=== PATIENT | male | born 1955 | race Caucasian/White ===

== ENCOUNTER 2021-08-04 00:39 | Day surgery (SDC) | payer MEDICARE, SELFPAY ==
[2021-07-11 13:41] VITALS: BMI 27.9
[2021-08-04 11:55] VITALS: BP 148/92; PULSE 66; RESP 20; TEMP 37; O2SAT 97; BMI 27.6
[2021-08-04] MEDS: LACTATED RINGERS 1,000 ML 150 ML IV CONT (11:58)
--- NOTE | 2021-08-04 12:26 | PM.HPGS ---
History of Present Illness History of Present Illness Consent: Risks, benefits, and alternatives have been discussed and questions answered. Patient agrees to proceed with procedure. Chief complaint: hx of colon polyps Narrative: Jim Vivas is a 66 year old male Referred for colon cancer screening. He has a history of having adenomatous polyps. His last colonoscopy was 5 years ago. Review of Systems Review of Systems: All systems reviewed & are unremarkable except as noted in HPI and below PMFSH Past Medical History Medical History BMI 28.0-28.9,adult BPH associated with nocturia Elevated blood pressure reading Erectile dysfunction due to arterial insufficiency Essential (primary) hypertension Hyperplastic colonic polyp Mixed hyperlipidemia PSA elevation Rash of face Screen for colon cancer Social History Social History Smoking status: Never smoker Alcohol intake: current Substance use: never Substance use type: does not use Living arrangements: with family Spiritual care concerns: No Meds Home Medications and Allergies Home Medications Medication Instructions Recorded Confirmed Type sildenafil (pulm.hypertension) 20 See Rx Instructions PO DAILY PRN 10/31/20 08/04/21 Rx mg tablet #30 tablet benazepril 10 mg tablet 10 mg PO DAILY #90 tablet 06/15/21 08/04/21 Rx metronidazole 0.75 % topical cream 1 applic TOPICAL QHS #45 g 06/15/21 08/04/21 Rx ascorbic acid (vitamin C) 1 g PO DAILY 07/11/21 08/04/21 History cholecalciferol (vitamin D3) 25 mcg PO DAILY 07/11/21 08/04/21 History [Vitamin D3] diphenhydramine-acetaminophen 0.5 tablet PO HS 07/11/21 08/04/21 History [Tylenol PM Extra Strength] meloxicam 7.5 mg PO DAILY 07/11/21 08/04/21 History tamsulosin 0.4 mg PO DAILY 07/11/21 08/04/21 History Allergies Allergy/AdvReac Type Severity Reaction Status Date / Time No Known Allergies Allergy Verified 08/04/21 11:53 Vital Signs Vital Signs - 24 hr 08/04/21 11:55 Temperature 37.0 C Pulse Rate 66 Respiratory Rate 20 Blood Pressure 148/92 H Pulse Oximetry 97 Exam Resp: Auscultation: clear to auscultation bilaterally Cardio: Rate: regular rate Rhythm: regular rhythm GI: GI Palp: Yes Soft to palpation and No Tenderness to palpation present (GI) Assessment and Plan Assessment and plan (1) Screen for colon cancer: Code(s): Z12.11 - Encounter for screening for malignant neoplasm of colon Status: Acute Assessment and Plan: Colonoscopy with possible biopsy or polypectomy or cautery or injection of substances.
--- NOTE | 2021-08-04 12:45 | WPDANESEPPF ---
Anes - Initial Pre Proc Eval Procedure: Operation Date: 08/04/21 13:15 Proposed Procedures p Screening Colonoscopy - Vance Pena MD Date/Time: 08/04/21 12:45 Surgeon: Vance Pena MD Pre Op Diagnosis: hx of colon polyps Patient Data Age: 66 Gender: M Height: 1.85 m Weight: 95.2 kg Last Vital Signs Temp 98.6 F 08/04/21 11:55 Pulse 66 08/04/21 11:55 Resp 20 08/04/21 11:55 BP 148/92 H 08/04/21 11:55 Pulse Ox 97 08/04/21 11:55 Allergies Allergy/AdvReac Type Severity Reaction Status Date / Time No Known Allergies Allergy Verified 08/04/21 11:53 Home Medications Medication Instructions Recorded Confirmed Type sildenafil (pulm.hypertension) 20 See Rx Instructions PO DAILY PRN 10/31/20 08/04/21 Rx mg tablet #30 tablet benazepril 10 mg tablet 10 mg PO DAILY #90 tablet 06/15/21 08/04/21 Rx metronidazole 0.75 % topical cream 1 applic TOPICAL QHS #45 g 06/15/21 08/04/21 Rx ascorbic acid (vitamin C) 1 g PO DAILY 07/11/21 08/04/21 History cholecalciferol (vitamin D3) 25 mcg PO DAILY 07/11/21 08/04/21 History [Vitamin D3] diphenhydramine-acetaminophen 0.5 tablet PO HS 07/11/21 08/04/21 History [Tylenol PM Extra Strength] meloxicam 7.5 mg PO DAILY 07/11/21 08/04/21 History tamsulosin 0.4 mg PO DAILY 07/11/21 08/04/21 History Patient hx anesthesia problems: none Family hx anesthesia problems: none Results Review: All pre-operative results and documents have been reviewed as part of the pre-operative evaluation. [facility] Past Medical History Medical History BMI 28.0-28.9,adult BPH associated with nocturia Elevated blood pressure reading Erectile dysfunction due to arterial insufficiency Essential (primary) hypertension Hyperplastic colonic polyp Mixed hyperlipidemia PSA elevation Rash of face Screen for colon cancer Social History Social History Smoking status: Never smoker Alcohol intake: current Substance use: never Substance use type: does not use Living arrangements: with family Spiritual care concerns: No Anes - Eval Final PreProcedure Day of Procedure 08/04/21 12:45 Patient weight: normal Heart: regular rate and rhythm Lungs: clear to auscultation Airway: Mallampati scale class II Neurological: alert and oriented Last oral intake: >/= 8 hours ASA classification: II Emergent: no Anesthetic plan: proceed Anesthesia type and monitoring: general GIVS and standard monitoring Results Review: All pre-operative results and documents have been reviewed as part of the pre-operative evaluation. Informed Consent: The patient's anesthetic plan and its attendant risks and benefits were discussed with the patient/family/POA. Questions were solicited and answers provided to the satisfaction of the patient/family/POA.
[2021-08-04 13:28] VITALS: BP 135/75; PULSE 64; RESP 19; O2SAT 98
[2021-08-04 13:38] VITALS: BP 132/80; PULSE 64; RESP 18; O2SAT 100
[2021-08-04 13:48] VITALS: BP 130/75; PULSE 65; RESP 17; O2SAT 100
== END 2021-08-04 13:51 | disposition home or self-care (01) ==
PROVIDERS: PCP Family Medicine; Visit Provider Internal Medicine Gastroenterology
PROC: 0DJD8ZZ Inspection of Lower Intestinal Tract, Via Natural or Artificial Opening Endoscopic (ICD-10-PCS; CPT 45378; principal; 2021-08-04 13:15)
DX: Z12.11 Encounter for screening for malignant neoplasm of colon (principal); K57.30 Diverticulosis of large intestine without perforation or abscess without bleeding; Z86.010 Personal history of colon polyps; I10 Essential (primary) hypertension; E78.2 Mixed hyperlipidemia; N40.1 Benign prostatic hyperplasia with lower urinary tract symptoms; R35.1 Nocturia
CPT/HCPCS: G0105; J2704; J7120

== ENCOUNTER 2022-06-19 08:47 | Outpatient (CLI) | payer MEDICARE, SELFPAY ==
[2022-06-19 18:36] LABS: Hematocrit 49.5 % (42.0-52.0); Hemoglobin 15.7 g/dL (14.0-18.0); Mean Corpuscular HGB Conc 31.7 g/dl (32-36); Mean Corpuscular Volume 97.6 fl (80-100); Mean Platelet Volume 9.1 fl (7.4-10.4); Platelet Count Result 207 k/mm3 (150-375); Red Blood Count 5.07 M/mm3 (4.6-6.20); Red Cell Distribution Width 13.2 % (11.5-14.5); White Blood Count 5.7 K/mm3 (4.5-10.0)
[2022-06-19 20:25] LABS: Alanine Aminotransferase 22 U/L (6-50); Albumin Level 4.3 g/dL (3.5-5.1); Alkaline Phosphatase 79 U/L (38-126); Anion Gap 6 mmol/L (8-16); Aspartate Amino Transferase 48 U/L (17-59); Bilirubin,Total 0.7 mg/dL (0.2-1.3); Blood Urea Nitrogen 18 mg/dL (9-20); Calcium 8.7 mg/dL (8.4-10.2); Carbon Dioxide 31 mmol/L (22-30); Chloride 104 mmol/L (98-107); Cholesterol 176 mg/dL (0-200); Estimated Glomerular Filt Rate > 60; Glucose 75 mg/dL (65-110); HDL Direct 42 mg/dL; Potassium 4.7 mmol/L (3.4-5.0); Sodium 141 mmol/L (137-145); Triglycerides 77 mg/dL (<150)
[2022-06-19 20:35] LABS: LDL Cholesterol Direct 110 mg/dL
== END 2022-06-19 08:48 | disposition home or self-care (01) ==
LOC: ANHGOSHLAB 08:48
PROVIDERS: PCP Family Medicine; Visit Provider Family Medicine
DX: E78.2 Mixed hyperlipidemia (principal); I10 Essential (primary) hypertension; N40.1 Benign prostatic hyperplasia with lower urinary tract symptoms; R35.1 Nocturia; Z12.5 Encounter for screening for malignant neoplasm of prostate; Z13.220 Encounter for screening for lipoid disorders
CPT/HCPCS: 36415; 80048; 80061; 80076; 84153; 84443; 85027; G0103

== ENCOUNTER 2022-09-28 08:47 | Outpatient (CLI) | payer MEDICARE, SELFPAY ==
[2022-09-28 16:44] LABS: Cholesterol 160 mg/dL (0-200); HDL Direct 42 mg/dL; Triglycerides 57 mg/dL (<150)
[2022-09-28 16:55] LABS: LDL Cholesterol Direct 100 mg/dL
== END 2022-09-28 08:48 | disposition home or self-care (01) ==
LOC: ANHGOSHLAB 08:48
PROVIDERS: PCP Family Medicine; Visit Provider Nurse Practitioner Family
DX: E78.5 Hyperlipidemia, unspecified (principal)
CPT/HCPCS: 36415; 80061

== ENCOUNTER 2023-06-24 08:53 | Outpatient (CLI) | payer MEDICARE, SELFPAY ==
[2023-06-24 10:40] LABS: Hematocrit 45.6 % (42.0-52.0); Mean Corpuscular HGB Conc 32.9 g/dl (32-36); Mean Corpuscular Hemoglobin 31.3 pg (26-34); Mean Corpuscular Volume 95.2 fl (80-100); Mean Platelet Volume 9.1 fl (7.4-10.4); Platelet Count Result 205 k/mm3 (150-375); Red Blood Count 4.79 M/mm3 (4.6-6.20); Red Cell Distribution Width 13.1 % (11.5-14.5); White Blood Count 5.2 K/mm3 (4.5-10.0)
[2023-06-24 10:52] LABS: Alanine Aminotransferase 20 U/L (6-50); Albumin Level 4.1 g/dL (3.5-5.1); Alkaline Phosphatase 75 U/L (38-126); Anion Gap 3 mmol/L (8-16); Aspartate Amino Transferase 36 U/L (17-59); Bilirubin,Total 0.8 mg/dL (0.2-1.3); Blood Urea Nitrogen 18 mg/dL (9-20); Carbon Dioxide 31 mmol/L (22-30); Chloride 106 mmol/L (98-107); Cholesterol 172 mg/dL (0-200); Estimated Glomerular Filt Rate > 60; Glucose 94 mg/dL (65-110); HDL Direct 44 mg/dL; Potassium 3.8 mmol/L (3.4-5.0); Sodium 140 mmol/L (137-145); Triglycerides 62 mg/dL (<150)
[2023-06-24 11:03] LABS: LDL Cholesterol Direct 110 mg/dL
[2023-06-24 11:21] LABS: Prostate Specific Antigen 4.3 ng/mL (< OR = 4.0)
== END 2023-06-24 08:54 | disposition home or self-care (01) ==
LOC: ANHGOSHLAB 08:55
PROVIDERS: PCP Family Medicine; Visit Provider Family Medicine
DX: I10 Essential (primary) hypertension (principal); Z12.5 Encounter for screening for malignant neoplasm of prostate; R97.20 Elevated prostate specific antigen [PSA]; E78.2 Mixed hyperlipidemia; Z13.220 Encounter for screening for lipoid disorders
CPT/HCPCS: 36415; 80048; 80061; 80076; 84153; 84443; 85027; G0103

== ENCOUNTER 2023-07-04 09:57 | Outpatient (CLI) | payer MEDICARE, SELFPAY | END 2023-07-04 09:58 | disposition home or self-care (01) | LOC: ANHAUDASC 09:58 | PROVIDERS: PCP Family Medicine; Visit Provider Family Medicine | DX: H93.13 Tinnitus, bilateral (principal); H90.3 Sensorineural hearing loss, bilateral | CPT/HCPCS: 92557; 92567 ==

== ENCOUNTER 2023-08-01 11:00 | Outpatient (RCR) | payer MEDICARE, SELFPAY | END 2023-10-14 23:59 | disposition home or self-care (01) | LOC: ANHAUDASC 11:00 | PROVIDERS: PCP Family Medicine; Visit Provider Family Medicine | DX: Z46.1 Encounter for fitting and adjustment of hearing aid (principal) | CPT/HCPCS: 99199; V5261 ==

== ENCOUNTER 2023-10-13 08:05 | Emergency (ER) | payer MEDICARE, SELFPAY ==
[2023-10-13 08:16] VITALS: BP 176/93; PULSE 93; RESP 16; TEMP 36.8; O2SAT 97
--- NOTE | 2023-10-13 08:28 | ED.MALEGU ---
HPI - Male Genitourinary General Chief complaint: Abdominal Pain Stated complaint: ABD PAIN Time Seen by Provider: 10/13/23 08:17 Source: patient, family (), RN notes reviewed and old records reviewed Mode of arrival: ambulatory Limitations: no limitations History of Present Illness HPI Narrative: Patient presents today complaining of severe suprapubic pain and pressure, urinary retention, fever. Patient went to see his PCP 2 days ago for urinary symptoms and was started on Macrobid. Subsequent culture shows E coli, but sensitivity is still pending. Patient states last night he started running a fever up to 102 for which he took ibuprofen around 8:00 p.m.. Around 2:00 a.m. he had some dribbling urine in very small amount, but has not urinated since that time as he is unable. He is having some severe suprapubic pain and pressure that he rates a 10/10. Related Data Home Medications Medication Instructions Recorded Confirmed ascorbic acid (vitamin C) 1,000 mg 1 g PO DAILY 07/11/21 10/13/23 tablet cholecalciferol (vitamin D3) 25 25 mcg PO DAILY 07/11/21 10/13/23 mcg (1,000 unit) tablet (Vitamin D3) solifenacin 5 mg tablet (Vesicare) 5 mg PO DAILY 05/22/22 10/13/23 Allergies Allergy/AdvReac Type Severity Reaction Status Date / Time No Known Allergies Allergy Verified 10/13/23 08:12 Review of Systems Review of Systems: CONSTITUTIONAL: Denies body aches, chills, or sweats.+ fever EYES: Denies visual changes, redness, or discharge. ENT: Denies rhinorrhea, congestion, sore throat, or otalgia. CARDIOVASCULAR: Denies chest pain, palpitations, or edema. RESPIRATORY: Denies cough or dyspnea. GASTROINTESTINAL: Denies nausea, vomiting, or diarrhea.+ suprapubic pressure and pain GENITOURINARY: Denies dysuria or hematuria.+ urinary retention SKIN: Denies rash, itching, or wounds. MUSCULOSKELETAL: Denies back pain, joint pain, or myalgia. NEUROLOGIC: Denies headache, numbness, tingling, or weakness. PSYCH: Denies depression or anxiety. 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 Mother No problems noted. Sibling No problems noted. 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 Please see nursing chart for further information. There is no
== END 2023-10-13 08:31 | disposition short-term general hospital (02) ==
PROVIDERS: Emergency Provider Nurse Practitioner; PCP Family Medicine
DX: R33.9 Retention of urine, unspecified (principal); N39.0 Urinary tract infection, site not specified; Z87.891 Personal history of nicotine dependence; N40.0 Benign prostatic hyperplasia without lower urinary tract symptoms; I10 Essential (primary) hypertension; E78.2 Mixed hyperlipidemia; Z85.820 Personal history of malignant melanoma of skin; Z85.72 Personal history of non-Hodgkin lymphomas
CPT/HCPCS: 99212; G0463

== ENCOUNTER 2023-10-13 08:43 | Emergency (ER) | payer MEDICARE, SELFPAY ==
[2023-10-13 08:48] VITALS: BP 193/93; PULSE 96; RESP 20; TEMP 37; O2SAT 98
[2023-10-13 09:04] LABS: Basophils Absolute Auto 0.1 K/mm3 (0.0-0.1); Basophils Percent Auto 0.4 % (0.2-1.2); Eosinophils Percent Auto 0.1 % (0-4.4); Hemoglobin 14.3 g/dL (14.0-18.0); Immature Granulocyte Absolute 0.05 K/mm3 (0.00-0.031); Immature Granulocyte Percent A 0.4 % (0-0.5); Lymphocytes Absolute Auto 0.69 K/mm3 (0.9-3.2); Lymphocytes Percent Auto 5.8 % (18.3-44.2); Mean Corpuscular Hemoglobin 31.6 pg (26-34); Mean Corpuscular Volume 92.9 fl (80-100); Mean Platelet Volume 8.9 fl (7.4-10.4); Neutrophils Absolute Auto 10.1 K/mm3 (1.3-6.7); Neutrophils Percent Auto 85.3 % (45.5-73.1); Platelet Count Result 179 k/mm3 (150-375); Red Blood Count 4.52 M/mm3 (4.6-6.20); Red Cell Distribution Width 12.4 % (11.5-14.5); White Blood Count 11.8 K/mm3 (4.5-10.0)
--- NOTE | 2023-10-13 09:11 | ED.GENADULT ---
HPI - General Adult General Chief complaint: Urogenital-Male Stated complaint: UTI (sent from Urgent Care) Time Seen by Provider: 10/13/23 08:44 History of Present Illness HPI narrative: 68-year-old male presenting emergency department for evaluation for urinary tension with the current urinary tract infection. Patient was having symptoms a few days ago did have follow-up with primary care physician was started on Macrobid and Pyridium. Patient reports last night he had onset of fever up to 102. Patient has not taken Tylenol ibuprofen today and patient is afebrile. Patient initially presented to the urgent care for evaluation but was referred to the emergency department due to suspected urinary retention. Patient states he does follow-up with Urology for issues with urinary retention and does take tamsulosin. Patient has never required a Evans catheter. Related Data Home Medications Medication Instructions Recorded Confirmed ascorbic acid (vitamin C) 1,000 mg 1 g PO DAILY 07/11/21 10/13/23 tablet cholecalciferol (vitamin D3) 25 25 mcg PO DAILY 07/11/21 10/13/23 mcg (1,000 unit) tablet (Vitamin D3) solifenacin 5 mg tablet (Vesicare) 5 mg PO DAILY 05/22/22 10/13/23 Allergies Allergy/AdvReac Type Severity Reaction Status Date / Time No Known Allergies Allergy Verified 10/13/23 08:12 Review of Systems Review of Systems: All systems reviewed & are unremarkable except as noted in HPI and below PMFSH Past Medical History Medical History Bilateral tinnitus BMI 28.0-28.9,adult BMI 29.0-29.9,adult BPH associated with nocturia Changing skin lesion Diverticulosis Elevated blood pressure reading Erectile dysfunction due to arterial insufficiency Essential (primary) hypertension Hearing loss Hyperplastic colonic polyp 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 Mother No problems noted. Sibling No problems noted. 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 HEAD: normocephalic, atraumatic. EYES: PERRLA/EOMI, conjunctivae clear. NOSE: Normal no drainage EARS:TMS clear with good light reflex. THROAT: Pharynx clear, no exudate. NECK: Supple. No adenopathy, no masses. RESPIRATORY: Airway patent, respirations nonlabored. Clear to auscultation bilaterally, no rales, rhonchi, wheezing. CARDIOVASCULAR: Regular rate and rhythm without murmurs rubs or gallops. ABDOMINAL: Suprapubic tenderness to palpation, resolved after placement of Evans catheter MUSCULOSKELETAL: Moves all extremities. Strength/ROM intact, No edema, No calf tenderness. NEURO: Alert. Cranial nerves II through XII intact. Grossly intact SKIN: Warm, dry. Normal
[2023-10-13 09:16] LABS: Alanine Aminotransferase 29 U/L (6-50); Albumin Level 4.7 g/dL (3.5-5.1); Alkaline Phosphatase 98 U/L (38-126); Anion Gap 11 mmol/L (4-12); Aspartate Amino Transferase 33 U/L (17-59); Bilirubin,Total 1.4 mg/dL (0.2-1.3); Blood Urea Nitrogen 17 mg/dL (9-20); Calcium 9.1 mg/dL (8.4-10.2); Carbon Dioxide 23 mmol/L (22-30); Chloride 103 mmol/L (98-107); Estimated CRCL calculation 52 ml/min; Estimated Glomerular Filt Rate 55; Glucose 151 mg/dL (65-110); Potassium 3.9 mmol/L (3.4-5.0); Sodium 137 mmol/L (137-145)
[2023-10-13 09:41] LABS: Bacteria Urine None Seen /hpf; Need Manual Microscopic Reviewed; Non Pathogenic Casts 0-2; Squamous Epithelial Cell Urine None Seen /hpf (Few); WBC Urine 0-5 /hpf (0-3)
[2023-10-13 09:42] LABS: Appearance Urine Clear (Clear); Color Urine Orange (Yellow); Specific Grav Ur 1.013 (1.001-1.035)
[2023-10-13 09:47] LABS: Add Urine Microscopic? YES
[2023-10-13 09:56] VITALS: BP 147/90; PULSE 75; RESP 19; O2SAT 97
[2023-10-13 10:26] VITALS: BP 151/84; PULSE 73; RESP 17; O2SAT 96
== END 2023-10-13 10:28 | disposition home or self-care (01) ==
PROVIDERS: Emergency Provider Emergency Medicine; PCP Family Medicine
DX: N40.1 Benign prostatic hyperplasia with lower urinary tract symptoms (principal); R33.8 Other retention of urine; N39.0 Urinary tract infection, site not specified; R35.1 Nocturia; I10 Essential (primary) hypertension; E78.2 Mixed hyperlipidemia; N52.01 Erectile dysfunction due to arterial insufficiency; Z85.820 Personal history of malignant melanoma of skin; Z86.010 Personal history of colon polyps; Z87.891 Personal history of nicotine dependence
CPT/HCPCS: 36415; 51702; 80053; 81001; 85025; 96365; 99284; J0696

== ENCOUNTER 2023-10-23 09:55 | Outpatient (CLI) | payer MEDICARE, SELFPAY ==
--- NOTE | 2023-10-23 10:04 | ECG_ITS ---
Test Date: 2023-10-23 10:16:00 Measurements Intervals [place] Rate: 72 P: 15 HI: 165 QRS: 3 QRSD: 97 T: 19 QT: 375 QTc: 413 Interpretive Statements SINUS RHYTHM DELAYED PRECORDIAL R/S TRANSITION MINIMAL Q WAVES- HIGH LATERAL LEADS BASELINE ARTIFACT- I, II, III, AVR, AVL, AVF BORDERLINE ECG No previous ECG available for comparison Electronically Signed On 10-23-2023 10:23:32 CDT by Dileep Harvey D.O.
[2023-10-23 10:38] LABS: Prothrombin Time 13.9 Seconds (11.1-14.7)
[2023-10-23 10:39] LABS: Partial Thromboplastin Time 30.9 Seconds (22.3-36.8)
== END 2023-10-23 09:56 | disposition home or self-care (01) ==
LOC: ANHSURGERY 09:58
PROVIDERS: PCP Family Medicine; Visit Provider Urology
DX: N40.0 Benign prostatic hyperplasia without lower urinary tract symptoms (principal); I10 Essential (primary) hypertension; Z01.818 Encounter for other preprocedural examination
CPT/HCPCS: 36415; 85610; 85730; 87086; 93005

== ENCOUNTER 2023-10-29 02:34 | Day surgery (SDC) | payer MEDICARE, SELFPAY ==
[2023-10-22 15:31] VITALS: BMI 26.9
--- NOTE | 2023-10-22 15:52 | PC.NURSE ---
Report to the Outpatient Waiting Room, entrance under the green pavilion located off [facility], at time ___6:00AM____ on date ___10/29/23____. Planned Procedure Time: __7:30AM . Time changes happen often and if your time is changed the preop area will call you the afternoon before. - You and your visitor will be asked to self-screen and do not enter if you have any COVID symptoms. - A mask is optional within the hospital at this time. Patients may have clear liquids (water, carbonated beverages, clear teas, apple juice) until 3 hours prior to surgery with a maximum of 20 ounces. - No food from midnight until time of surgery. Take the following medications with a SIP of water the morning of surgery: NONE DO NOT STOP ANY OF YOUR OTHER PRESCRIPTION MEDICATIONS PRIOR TO SURGERY ?EXCEPT THE FOLLOWING Medications to discontinue per physician __HOLD ALL VITAMINS/SUPPLEMENTS AND DICLOFENAC 7 DAYS PRE-OP PER DR MCHUGH Date to take last dose____10/21/23 Please no make-up, nail serbian, hairspray, perfume, deodorant, or body powder the day of surgery. No jewelry (including any body piercings) or valuables the day of surgery, leave them at home. Please take a shower or bath the night before, or the morning of, surgery with an antibacterial soap. Wear comfortable, loose fitting clothing. - Jewelry must be removed prior to entering the operating room. Rings and piercings that are not removed may be cut off. - The hospital will not accept responsibility for valuables. - Please leave all valuables, including medications, at home the day of surgery. If you are going home after surgery, a licensed driver salesman must drive you home. - NO public transportation without another adult if you receive anesthesia. - We recommend that an adult stay with you for 24 hours following discharge. - We also recommend that you do not drive, make important decision, drink alcoholic beverages, or take any drugs that were not prescribed by your health care provider for at least 24 hours after your discharge time. Follow any additional instructions given to you from your surgeon. If you or anyone in your household have experienced Covid symptoms in the past week, please notify your surgeon or the nurse liaison at the phone number below for possible testing. Telephone instructions given to ____PATIENT & , HECTOR, and asked if any additional questions and then verbalized understanding. Patient advised to call surgeon office or pre surgery nurse liaison [phone] if any additional questions.
[2023-10-29] VITALS (12 sets, daily range): BP systolic 115–164; BP diastolic 69–92; PULSE 60–79; RESP 11–20; TEMP 35.7–36.7; O2SAT 97–100
--- NOTE | 2023-10-29 06:41 | WPDANESEPPF ---
Anes - Initial Pre Proc Eval Procedure: Operation Date: 10/29/23 07:30 Proposed Procedures p Trans Urethral Resection Prostate - Duncan Bryant MD Date/Time: 10/29/23 06:41 Surgeon: Duncan Bryant MD Pre Op Diagnosis: BPH Patient Data Age: 68 Gender: M Height: 1.83 m Weight: 90 kg Allergies Allergy/AdvReac Type Severity Reaction Status Date / Time No Known Allergies Allergy Verified 10/22/23 15:27 Home Medications Medication Instructions Recorded Confirmed Type cholecalciferol (vitamin D3) 25 25 mcg PO DAILY 07/11/21 10/22/23 History mcg (1,000 unit) tablet (Vitamin D3) diclofenac sodium 50 mg 50 mg PO TID PRN pain #90 tabs 06/04/23 10/22/23 Rx tablet,delayed release sildenafil 100 mg tablet 100 mg PO DAILY PRN sexual 06/13/23 10/22/23 Rx activity #30 tabs tamsulosin 0.4 mg capsule 0.4 mg PO DAILY #90 caps 06/13/23 10/22/23 Rx benazepril 10 mg tablet 10 mg PO DAILY #90 tabs 08/25/23 10/22/23 Rx multivitamin 1 tablet PO DAILY 10/22/23 10/22/23 History Patient hx anesthesia problems: none Family hx anesthesia problems: none Results Review: All pre-operative results and documents have been reviewed as part of the pre-operative evaluation. 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 Mother No problems noted. Sibling No problems noted. Social History Social History Smoking packs per day: 1 Smoking cigarettes per day: 20.0 Years smoked: 12 Smoking pack-years: 12.00 Smoking status: Former smoker Tobacco type: cigarettes Second hand tobacco smoke exposure: Yes Smoking end date: 10/13/77 Alcohol intake: current Substance use: never Substance use type: does not use Do You Feel Safe in your Home?: Yes Lack of Transportation: No Lack of Food: Never True Current Housing: I Have Housing Concerned About Future Housing: No Difficulty Paying Gas/Electric Bills: No Difficulty Paying for Meds: No Currently Unemployed: No Education: Trade/Vocational Certificate Difficulty w/ Childcare or Family Care: No Living arrangements: with family Additional living arrangements comments: 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 Informed Consent: The patient's anesthetic plan and its attendant risks and benefits were discussed with the patient/family/POA. Questions were solicited and answers provided to the satisfaction of the patient/family/POA.
[2023-10-29] MEDS: LACTATED RINGERS 1,000 ML 30 ML IV CONT (07:00)
--- NOTE | 2023-10-29 07:34 | WPDHPUPDATE1 ---
History and Physical Update Update Date/Time: 10/29/23 07:34 History and Physical has been reviewed, including an updated exam of the patient. There are NO changes in the patient's condition. Risks, benefits, and alternatives have been discussed and questions answered. Patient agrees to proceed with procedure. Proceed with turp
[2023-10-29] MEDS: ceFAZolin 2 GM/D5W 50 ML 2 GM/50 ML BAG IVPB (07:44)
[2023-10-29] MEDS: LIDOCAINE HCL 2% GEL UROJET 10 ML PKG MUCOUS MEM (08:35)
--- NOTE | 2023-10-29 08:42 | W.PM.PROC2 ---
Procedure Note - Detailed Date of Procedure 10/29/23 Pre-op Diagnosis BPH Urinary retention Post-op Diagnosis Same Procedure Performed Transurethral resection of prostate with Evans placement Surgeon Duncan Bryant MD Anesthesia General Description of Procedure Patient was taken to the operative suite correctly identified. Once anesthesia was obtained he was placed in dorsal lithotomy position and prepped and draped usual sterile fashion. Urethra meatus was dilated to 24 [place]. Twenty-four [place] resectoscope sheath was inserted the bladder. There is no tumors noted. He does have a large median lobe. The lateral lobes were moderate in size. I went ahead and started by resecting from the bladder neck at the 5 and 7 o'clock position down to the vera. The lateral lobes were then taken down. Median lobe was taken down last. The ureteral orifice ease and the sphincter was spared. Hemostasis was achieved using electrocautery. Specimen was sent for pathologic review. 2% viscous lidocaine was inserted into the urethra. Twenty-four [place] Evans was placed with 20 cc in the balloon. This was connected to continuous bladder irrigation with saline. Patient is taken recovery stable condition. This completes dictation. Please send a copy of op note to my office. Estimated Blood Loss 25 Drains Yes Packing No Pathology Yes Complications No immediate complications Condition Stable Disposition PACU
[2023-10-29] MEDS: HYOSCYAMINE SULFATE 0.125 MG TABLET PO (09:14)
--- NOTE | 2023-10-29 09:14 | SUR.PHASEI ---
Simple mask removed at 0910.
[2023-10-29] MEDS: DOCUSATE SODIUM 100 MG CAPSULE PO ×2 (10:44→16:28)
[2023-10-29] MEDS: HYDROcodone/acetaminophen (*CRX) 5-325 MG TABLET 1 TAB PO (10:44)
[2023-10-29] MEDS: lisinopriL 10 MG TABLET PO (10:46)
--- NOTE | 2023-10-29 11:07 | ADMGEN ---
This patient, Jim Vivas, was admitted to [facility] Surg Room 314-02. Patient/family oriented to hospital policies and general routines including ID bracelet, bed and alarms, visiting hours, pain management, procedures, bathroom and other care routines, personal items, smoking policy, room service/diet, and visiting hours. Information on how to activate the Rapid Response Team has been discussed. Patient/Family are encouraged to report perceived risks to care and to ask questions if they do not understand what they are told or what they should do.
[2023-10-29] MEDS: ceFAZolin 1 GM/NS 50 ML 1 GM/50 ML BAG IVPB ×2 (16:28→22:56)
[2023-10-30 03:50] VITALS: BP 127/69; PULSE 66; RESP 20; TEMP 35.3; O2SAT 100
[2023-10-30 06:28] LABS: Hematocrit 41.3 % (42.0-52.0); Hemoglobin 13.6 g/dL (14.0-18.0)
[2023-10-30 06:40] LABS: Anion Gap 7 mmol/L (4-12); Blood Urea Nitrogen 13 mg/dL (9-20); Calcium 8.7 mg/dL (8.4-10.2); Carbon Dioxide 28 mmol/L (22-30); Chloride 102 mmol/L (98-107); Estimated CRCL calculation 82 ml/min; Estimated Glomerular Filt Rate > 60; Glucose 105 mg/dL (65-110); Sodium 137 mmol/L (137-145)
[2023-10-30 07:37] VITALS: BP 146/81; PULSE 72; RESP 20; TEMP 36.1; O2SAT 100
[2023-10-30] MEDS: CEPHALEXIN 500 MG CAPSULE PO ×2 (08:47→12:12)
[2023-10-30] MEDS: DOCUSATE SODIUM 100 MG CAPSULE PO (08:47)
[2023-10-30] MEDS: lisinopriL 10 MG TABLET PO (08:47)
[2023-10-30 11:38] VITALS: BP 129/74; PULSE 66; RESP 18; TEMP 36.3; O2SAT 95
--- NOTE | 2023-10-30 13:49 | PM.DS ---
DS: Admitting Diagnosis Discharge Date 10/30/2023 Admitting Diagnosis BPH DS: Discharge Diagnosis Discharge Diagnosis (1) BPH associated with nocturia: Code(s): N40.1 - Benign prostatic hyperplasia with lower urinary tract symptoms; R35.1 - Nocturia Status: Acute DS: Summary Hospital Course Hospital Course: Jim Vivas presented to [facility] in 10/29/2023 to undergo scheduled transurethral resection of prostate with Evans placement by Dr. Bryant. Procedure GERD and eventfully and patient tolerated very well. He was started on continuous bladder irrigation postoperatively. CBI was discontinued on postoperative day 1. Urine remained clear. He was ambulating without difficulty and tolerating his diet. His pain was very well controlled. He was eager for discharge home. Discussed discharge plans with patient and his at length. He will discharge with Evans catheter in place and will follow-up on 11/04/2023 for Evans catheter removal. Will continue a course of Keflex and was given a short course of analgesics and antispasmodics. Discussed worrisome signs and symptoms for which to seek care or call the office and all questions were answered. The patient has been discharged in hemodynamically stable condition and is comfortable with plans for return home. Status at Discharge Functional status at discharge: independent ambulation Overall status at discharge: patient is progressing back to baseline Time Spent with Patient Time attestation: Total time spent providing and/or coordinating discharge services: 35 minutes Time spent: Greater than 30 minutes Exam Narrative: General: Awake, alert, comfortable, no acute distress HEENT: Normocephalic, atraumatic, sclerae anicteric Respiratory: Normal respiratory effort, no accessory muscle use Abdomen: Nondistended, soft, nontender : Evans catheter draining clear jai urine with CBI off Skin: Normal coloration, warm and dry Neurologic: No focal neuro deficits noted Psychiatric: Appropriate mood and affect, judgment and insight intact DS: Data Data Completed and Pending Completed studies during hospitalization: Pending at discharge 10/29/23 08:23 Surgical [PTH] Routine Labs on day of discharge: Labs from last 24 hours 10/30/23 05:46 Hgb 13.6 L Hct 41.3 L Sodium 137 Potassium 4.0 Chloride 102 Carbon Dioxide 28 Anion Gap 7 BUN 13 Creatinine 0.80 Estim Creat Clear Calc 82 Estimated GFR > 60 Glucose 105 Calcium 8.7 Discharge Plan Discharge Attending physician on discharge: Duncan Bryant Discharging Clinician: Charity Robert Patient Disposition: Home, Self-Care Discharge Instructions: Continue to use the Evans catheter. Call the office or go to the ER if you have any troubles with a catheter or if it stops draining Stand Alone Forms: General Discharge Instructions Follow-up/Referrals: Charity Robert PA-C [Physician Shot Bagger] - 11/04/23 Discharge Medications: New cephalexin 500 mg Capsule 500 mg PO QID 5 Days Qty: 20 0RF docusate sodium 100 mg Capsule 100 mg PO BID 10 Days Qty: 20 0RF hydrocodone-acetaminophen 5-325 mg Tablet 1 tablet PO Q4H PRN (Reason: Pain Rated 1-6) Qty: 20 0RF hyoscyamine sulfate [Anaspaz] 0.125 mg Tablet,Disintegrating 0.125 mg sublingual Q6H PRN (Reason: Bladder Spasm) Qty: 20 0RF Continued sildenafil 100 mg tablet 100 mg PO DAILY PRN (Reason: sexual activity) Qty: 30 0RF Rx Instructions: administer 30 minutes to 4 hours before activity tamsulosin 0.4 mg capsule 0.4 mg PO DAILY Qty: 90 3RF Rx Instructions: TAKE 1 CAPSULE BY MOUTH DAILY cholecalciferol (vitamin D3) [Vitamin D3] 25 mcg (1,000 unit) Tablet 25 mcg PO DAILY multivitamin Tablet 1 tablet PO DAILY benazepril 10 mg tablet 10 mg PO DAILY Qty: 90 1RF Rx Instructions: in am Held diclofenac sodium 50 mg
== END 2023-10-30 14:50 | disposition home or self-care (01) ==
LOC: ANHSURGERY 05:54 → ANH3MEDSUR 10:07
PROVIDERS: PCP Family Medicine; Visit Provider Urology
PROC: 0VT08ZZ Resection of Prostate, Via Natural or Artificial Opening Endoscopic (ICD-10-PCS; CPT 52601; principal; 2023-10-29 07:30)
DX: N40.1 Benign prostatic hyperplasia with lower urinary tract symptoms (principal); N41.1 Chronic prostatitis; R33.8 Other retention of urine; N32.81 Overactive bladder; I10 Essential (primary) hypertension; E78.2 Mixed hyperlipidemia; N52.9 Male erectile dysfunction, unspecified; Z87.891 Personal history of nicotine dependence; Z86.010 Personal history of colon polyps; Z85.820 Personal history of malignant melanoma of skin
CPT/HCPCS: 52601; 36415; 80048; 85014; 85018; 85610; 85730; 87086; 88305; 93005; A9270; J0690; J1100; J2405; J2704; J3010; J7120

== ENCOUNTER 2023-12-23 16:16 | Outpatient (CLI) | payer MEDICARE, SELFPAY ==
[2023-12-23 18:52] LABS: Basophils Absolute Auto 0.1 K/mm3 (0.0-0.1); Basophils Percent Auto 0.9 % (0.2-1.2); Eosinophils Absolute Auto 0.2 K/mm3 (0-0.3); Eosinophils Percent Auto 2.2 % (0-4.4); Hematocrit 43.9 % (42.0-52.0); Hemoglobin 14.5 g/dL (14.0-18.0); Immature Granulocyte Absolute 0.01 K/mm3 (0.00-0.031); Immature Granulocyte Percent A 0.1 % (0-0.5); Lymphocytes Absolute Auto 1.96 K/mm3 (0.9-3.2); Lymphocytes Percent Auto 28.2 % (18.3-44.2); Mean Corpuscular Hemoglobin 31.2 pg (26-34); Mean Corpuscular Volume 94.4 fl (80-100); Mean Platelet Volume 9.2 fl (7.4-10.4); Monocytes Absolute Auto 0.5 K/mm3 (0.1-0.6); Monocytes Percent Auto 6.9 % (2.6-8.5); Neutrophils Absolute Auto 4.3 K/mm3 (1.3-6.7); Neutrophils Percent Auto 61.7 % (45.5-73.1); Platelet Count Result 220 k/mm3 (150-375); Red Blood Count 4.65 M/mm3 (4.6-6.20); Red Cell Distribution Width 12.7 % (11.5-14.5); White Blood Count 6.9 K/mm3 (4.5-10.0)
[2023-12-23 19:11] LABS: Anion Gap 6 mmol/L (4-12); Blood Urea Nitrogen 16 mg/dL (9-20); Calcium 9.2 mg/dL (8.4-10.2); Carbon Dioxide 32 mmol/L (22-30); Chloride 100 mmol/L (98-107); Estimated Glomerular Filt Rate > 60; Glucose 86 mg/dL (65-110); Potassium 4.2 mmol/L (3.4-5.0); Sodium 138 mmol/L (137-145)
[2023-12-24 00:38] LABS: Iron 122 ug/dL (49-181)
[2023-12-24 00:46] LABS: Percent Iron Saturation 36 % (20-50)
== END 2023-12-23 16:17 | disposition home or self-care (01) ==
PROVIDERS: PCP Family Medicine; Visit Provider Family Medicine
DX: D64.9 Anemia, unspecified (principal); I10 Essential (primary) hypertension; M54.9 Dorsalgia, unspecified
CPT/HCPCS: 36415; 80048; 82728; 83540; 83550; 84443; 85025; 87086

== ENCOUNTER 2024-03-10 12:57 | Outpatient (CLI) | payer MEDICARE, SELFPAY ==
--- NOTE | ~2024-03-10 | XR_ITS ---
EXAM: XR lumbar spine 2-3V DATE: 03/10/2024 13:14 HISTORY: M54.31 - Sciatica, right side . COMPARISON: None available. FINDINGS: Moderate scoliosis. 5 nonrib-bearing lumbar-type vertebral bodies. Pedicles intact. 3 mm re trolisthesis at L1-2. 3 mm anterolisthesis at L4-5. Mild anterior wedge deformity at L1. Multilevel m oderate disc space narrowing and marginal osteophytosis. Vacuum phenomenon at L4-5. Moderate facet hy pertrophy and sclerosis in the mid and lower lumbar spine, with interspinous narrowing. No fracture o r dislocation. IMPRESSION: Acute versus chronic mild compression deformity at L1, correlate for acute pain/tenderness or history of prior trauma. Comparison to outside studies would be helpful if available. Grade 1 listheses at L1-2 and L4-5. Multilevel lumbar degenerative disc disease, moderate-severe at L 4-5. Moderate mid and lower lumbar facet arthropathy. Reviewed, dictated and finalized at location [facility] IMPRESSION: Acute versus chronic mild compression deformity at L1, correlate for acute pain /tenderness or history of prior trauma. Comparison to outside studies would be helpful if available. Grade 1 listheses at L1-2 and L4-5. Multilevel lumbar degenerative disc disease , moderate-severe at L4-5. Moderate mid and lower lumbar facet arthropathy.
== END 2024-03-10 12:58 | disposition home or self-care (01) ==
LOC: GOSHIMG 12:57
PROVIDERS: PCP Family Medicine
DX: M54.31 Sciatica, right side (principal); M51.369 Other intervertebral disc degeneration, lumbar region without mention of lumbar back pain or lower extremity pain
CPT/HCPCS: 72100

== ENCOUNTER 2024-04-27 08:46 | Outpatient (CLI) | payer MEDICARE, SELFPAY ==
--- NOTE | ~2024-04-27 | MR_ITS ---
EXAMINATION: MR lumbar spine wo con DATE: 04/27/2024 09:15 INDICATION: Low back pain, unspecified. TECHNIQUE: Magnetic resonance imaging (MRI) of the lumbar spine was performed without intravenous con trast. Sequences included sagittal T2-weighted FSE, sagittal T2-weighted FS FSE, sagittal T1-weighted FSE, and axial T2-weighted FSE. COMPARISON: Lumbar spine radiograph 03/10/2024 FINDINGS: There is 8 degrees levocurvature of lumbar spine. There is 3 mm anterolisthesis of T12 on L 1, 5 mm retrolisthesis of L1 on L2, 6 mm anterolisthesis of L4 and L5, and 3 mm retrolisthesis of L5 on S1. There is mild chronic anterior wedging of T11-L1 vertebral bodies. There is mildly decreased d isc height at T12-L1 and L1-L2 and moderately decreased disc height from L2-L3 through L5-S1. The fol lowing disc levels are specifically discussed: L1-L2: The disc is bulging and has an annular fissure. There is mild right and moderate left facet emelyn int osteoarthritis. There is mild bilateral neural foraminal stenosis. There is mild central canal st enosis. L2-L3: The disc is bulging. There is severe bilateral facet joint osteoarthritis. There is moderate b ilateral neural foraminal stenosis. There is mild central canal stenosis. L3-L4: The disc is bulging and has an annular fissure. There is severe bilateral facet joint osteoart hritis. There is moderate right and mild left neural foraminal stenosis. There is mild central canal stenosis. L4-L5: The disc is bulging and has an annular fissure. There is severe bilateral facet joint osteoart hritis. There is moderate bilateral neural foraminal stenosis. There is moderate central canal stenos is. L5-S1: The disc is bulging and has an annular fissure. There is moderate right and severe left facet joint osteoarthritis. There is mild bilateral neural foraminal stenosis. There is mild central canal stenosis. IMPRESSION: 1. Moderate lumbar spondylosis. Reviewed, dictated and finalized at location [facility]
== END 2024-04-27 08:47 | disposition home or self-care (01) ==
LOC: GOSHIMG 08:47
PROVIDERS: PCP Family Medicine
DX: M54.50 Low back pain, unspecified (principal); M43.16 Spondylolisthesis, lumbar region; M41.9 Scoliosis, unspecified; M47.896 Other spondylosis, lumbar region
CPT/HCPCS: 72148

== ENCOUNTER 2024-06-24 10:16 | Outpatient (CLI) | payer MEDICARE, SELFPAY ==
--- OUTSIDE RECORDS SUMMARY | 2024-06-24 11:33 | XMS_ITS | Patient Health Record ---
Author Organization [facility] gement Address [address] [place] [address] Care Team Providers Care Agricultural Produce Washer Name Role Phone Steven Johnson Unavailable [phone] Burt Ken Unavailable Unavailable Allergies No Known Allergies Reason For Referral Reason Finding of elevated blood pressure Diagnosis 1 Elevated blood-press ure reading, without diagnosis of hypertension (R03.0) [place] [facility]erring Provider First Name Referring Provider Last Name Alex Referring Provider Speciality Pain Medic ine Referred Provider Specialty Internal Med icine Referral Priority Routine Reason (R) L5 and S1 SNRB Diagnosis 1 Radiculopathy, lumba r region (M54.16) [place] [facility] [place] Steven Johnson Referred Address [address],[place], [place],[address] Referred Provider Specialty Pain Medicin e Procedure 1 LUMBAR SNRI (63416) Procedure 2 LUMBAR SNRI (03517) General Notes approved through [facility], scanned in chart, QuinteroAnna ulrich 04/30/2024 12:49:14 PM > Referral Priority Routine Reason eval and treat for l ow back pain Diagnosis 1 Radiculopathy, lumba r region (M54.16) [place] [facility] [place]erring Provider First Name Referring Provider Last Name Alex Referring Provider Speciality Pain Medic ine Referred Provider Specialty Physical The rapist Referral Priority Routine Medications Medication SIG (Take, Route, Fr equency, Duration) Notes Start Date End Date Status Benazepril HCl Activ e Diclofenac Sodium Ac tive Social History Tobacco Use: Social History Observation Description Date Details (start date - stop date) Never Smoker NA - NA Tobacco Use/Smoking Question Answer Notes Are you a nonsmoker Alcohol Screen (Audit-C) Question Answer Notes Did you have a drink contain ing alcohol in the past year? Yes How often did you have a dri nk containing alcohol in the past year? Monthly or less (1 point) Points 1 Interpretation Negative Problems Problem Type SNOMED Code ICD Code Onset Dates Problem Status W/U Status Risk Notes Problem Degeneration of lumbar intervertebral disc (27757449) Other intervertebral disc degeneration, lumbar region (M51.36) Active confirmed Problem Lumbar radiculopathy (696281415) Radiculopathy, lumbar region (M54.16) Active confirmed Vital Signs Heart Rate 72 /min 05/05/2024 Temperature 98.2 degrees Fahrenheit 05/05/2024 Respiratory Rate 20 /min 05/05/2024 Blood pressure diastolic 95 mm Hg 05/05/2024 Height 71 in 05/05/2024 Blood pressure systolic 170 mm Hg 05/05/2024 Weight 204 lbs 05/05/2024 BMI 28.45 kg/m2 05/05/2024 Encounters Encounter Location Date Provider Diagnosis [facility] [address] [place] [phone] 04/29/2024 Steven Johnson Radiculopathy, lumba r region M54.16 and Other intervertebral disc degeneration, lumbar region M51.36 [facility] [address] [place] [phone] 05/05/2024 Steven Johnson Radiculopathy, lumba r region M54.16 and Other intervertebral disc degeneration, lumbar region M51.36 [facility] [address] [place] [phone] 05/12/2024 Steven Johnson [facility] [address] [place] [phone] 04/29/2024 Steven Johnson Assessments Encounter Date Diagnosis (ICD Code) Assessment Notes Treatment Notes Treatment Clinical Notes Section Notes 04/29/2024 Other intervertebral disc degeneration, lumbar region (ICD-10 - M51.36) 04/29/2024 Radiculopathy, lumbar region (ICD-10 - M54.16) 1. Proceed with a right L5 and S1 selective nerve root block. This treatment is for his diagnosis of lumbar radicular pain. Goals to be met are to reduce pain and improve his ability to function with his exercise therapy.2. Return for above procedure after insurance authorization 05/05/2024 Radiculopathy, lumbar region (ICD-10 - M54.16) 1. Proceed with a right L5 and S1 selective nerve root block.2. Return to clinic as necessary. Consider translaminar approach for failure. 05/05/2024 Other intervertebral disc degeneration, lumbar region (ICD-10 - M51.36) Plan Of Treatment Next Appt Details Provider Name:Steven fishman, 06/26/2024 02:45:00 PM, [address] [place] [address], [facility] [address], [place], [address], Insurance Providers Payer Name Payer Address Payer Phone Subscriber Number Group Number Insured Name Patient Relationship to Insured Coverage Start Date Coverage End Date [employer] MED[employer]ARE [address] [place] [address] [id number] Jim Vivas) Self - patient is the insured Medical (General) History Medical History History ICD Code high blood pressure skin cancer prostate problems Surgical History Surgery Date(Month/Year) TURP 10/2023 Mole Lesion- right arm 10/2023 Melanoma 1988
--- OUTSIDE RECORDS SUMMARY | 2024-06-24 11:34 | XMS_ITS | Referral Summary ---
Author Organization [facility] Address [address] [place] [id number] Care Team Providers Care Ux Architect Name Role Phone Burt Ken MD Primary Care Provider [phone] Allergies No known active allergies Medications meloxicam (MOBIC) 15 mg tablet Take 15 mg by mouth daily. Active benazepriL (LOTENSIN) 10 mg tablet Take 10 mg by mouth daily 01/04/2020 Active rosuvastatin (CRESTOR) 20 mg tablet TAKE 1 TABLET (20 MG) BY MOUTH DAILY 02/05/2020 Active tamsulosin (FLOMAX) 0.4 mg extended release capsule Take by mouth daily 02/12/2020 Active dutasteride (AVODART) 0.5 mg capsule 08/28/2021 Active Active Problems Problem Noted Date Diagnosed Date Primary osteoarthritis of left knee 02/24/2020 Basal cell carcinoma (BCC) of nasal tip 02/26/20 18 Basal cell carcinoma (BCC) of left cheek - Left 02/25/2018 Knee pain 03/14/2015 Social History Tobacco Use Types Packs/Day Years Used Date Smoking Tobacco: Former Cigarettes Smokeless Tobacco: Never Alcohol Use Standard Drinks/Week Comments Yes 0 (1 standard drink = 0.6 oz pur e alcohol) Rare Personal Safety Answer Date Recorded Getting School Help Needed Not on file 05/21 Sex and Gender Information Value Date Recorded Sex Assigned at Not on file Legal Sex Male 9:00 PM TIP PUNCHER Gender Identity Not on file Sexual Orientation Not on file Last Filed Vital Signs Vital Sign Reading Time Taken Comments Blood Pressure 146/91 02/25/2018 12:36 PM TIP PUNCHER Pulse 66 02/25/2018 12:36 PM TIP PUNCHER Temperature - - Respiratory Rate - - Oxygen Saturation 98% 02/25/2018 12:36 PM TIP PUNCHER Inhaled Oxygen Concentration - - Weight 95.3 kg (210 lb) 09/27/2021 1:13 PM CDT Height 185.4 cm (6' 1 ) 09/27/2021 1:13 PM CDT Body Mass Index 27.71 09/27/2021 1:13 PM CDT Plan of Treatment Not on file Insurance [facility] MEDICARE [facility] [place] [address] Care Teams Ux Architect Relationship Specialty Start Date End Date Burt Ken MD PCP - General Family Medicine 01/28/18
--- OUTSIDE RECORDS SUMMARY | 2024-06-24 11:34 | XMS_ITS ---
Author Organization [facility] gement Address [address] [place] [address] Care Team Providers Care Organic Chemistry Professor Name Role Phone Steven Johnson Unavailable [phone] Burt Ken Unavailable Unavailable REASON FOR VISIT DSG-[employer] MCR-approved Encounters Encounter Location Date Provider Diagnosis [facility] [address] [place] [address] 04/29/2024 Steven Johnson Plan Of Treatment Next Appt Details Provider Name:Steven Samuel erg, 06/26/2024 02:45:00 PM, [address], [address], [place], [address], Progress Notes * Jim VIVAS): (68 yo F)Acc No.[id number]:04/29/2024 Patient: S Jim WOOD) :1955 A ge:68 Y S ex:Female Address:[place] [address] * true * Date: Generated for Printi ng/Faxing/eTransmitting on: 0 06/24/2024 11:33 AM CDT
--- OUTSIDE RECORDS SUMMARY | 2024-06-24 11:34 | XMS_ITS ---
Author Organization [facility] Address [address] [place] [address] Care Team Providers Care Seat Builder Name Role Phone Steven Johnson Unavailable [phone] Burt Ken Unavailable Unavailable REASON FOR VISIT RT L5 S1 SNRB Medications Medication SIG (Take, Route, Fr equency, Duration) Notes Start Date End Date Status Benazepril HCl Activ e Diclofenac Sodium Ac tive Vital Signs Temperature 98.2 degrees Fahrenheit 05/05/19 25 Blood pressure systolic 170 mm Hg 05/05/19 25 Blood pressure diastolic 95 mm Hg 025 Heart Rate 72 /min 05/05/2024 Respiratory Rate 20 /min 05/05/2024 Height 71 in 05/05/2024 Weight 204 lbs 05/05/2024 BMI 28.45 kg/m2 05/05/2024 Encounters Encounter Location Date Provider Diagnosis [facility] [address] [address] [place] [address] 05/05/2024 Steven Johnson Radiculopathy, lumba r region M54.16 and Other intervertebral disc degeneration, lumbar region M51.36 Assessments Encounter Date Diagnosis (ICD Code) Assessment Notes Treatment Notes Treatment Clinical Notes Section Notes 05/05/2024 Radiculopathy, lumbar region (ICD-10 - M54.16) 1. Proceed with a right L5 and S1 selective nerve root block.2. Return to clinic as necessary. Consider translaminar approach for failure. 05/05/2024 Other intervertebral disc degeneration, lumbar region (ICD-10 - M51.36) Plan Of Treatment Treatment Notes Assessment Notes Radiculopathy, lumbar region 1. Proceed with a right L5 and S1 selective nerve root block.2. Return to clinic as necessary. Consider translaminar approach for failure. Next Appt Details Provider Name:Steven Samuel kye, 06/26/2024 02:45:00 PM, [address] [address], [address], [place], [address], Procedure Notes * Category Sub-Category Detail Notes Lumbar Multilevel Transforaminal Epidural Injection Right L5 and S1 The patient was identified i n the holding area and the operative permit was explained and signed. I have discussed with the patient the risks, benefits, side effects and complications of a fluoroscopically guided multiple level transforaminal lumbar epidural injections. I have answered the patient's questions regarding the procedure and have given the patient the opportunity to refuse the procedure. I also have discussed alternative methods of treatment. The patient stated understanding of the procedure and wished to proceed with a fluoroscopically guided multiple level transforaminal lumbar epidural injections. The patient was taken to the fluoroscopic suite and placed on a C-arm table in the prone position. Noninvasive blood pressure, pulse oximetry, and an EKG tracing were used to monitor the patient continuously throughout the procedure. A nurse was in attendance for the duration of the procedure to carefully monitor the patient. Please refer to the nursing record for vital sign documentation and for any doses of sedatives and medications. I was present and gave the order for any medications given to the patient. The procedure was performed on the right L5 nerve root. A sterile Betadine preparation and then a sterile drape were applied to the lumbosacral region of the back. The fluoroscopic unit was manipulated in a caudad/cephalad position until the disc spaces of the joints were in clear focus. The unit was then positioned in the oblique view until the pedicle and articulating processes were clearly visible. Using fluoroscopic guidance, a 5 inch, 25 gauge Quincke needle was placed on the six o'clock position of the pedicle. The needle was then slowly walked off the lamina into the nerve root foramen. A lateral fluoroscopic projection showed the needle tip entering the superior posterior aspect of the desired intervertebral foramen. Using AP fluoroscopic projection, 1.0 cc of Omnipaque (240 mg/cc) was injected through the needle and a neurogram was produced. There was clear dye spread through each nerve root sheath and into the epidural space. There was no cerebrospinal fluid or blood aspirated from the needle. A preservative free solution of 1.0 cc of 1% lidocaine and 0.5 cc of dexamethasone (10 mg/cc) of was injected. There were no signs or symptoms of intrathecal or intravascular injection. The needle was removed intact. The procedure was performed on the right S1 nerve root. A sterile Betadine preparation and then a sterile drape were applied to the lumbosacral region of the back. The fluoroscopic unit was manipulated in a caudad/cephalad position until the anterior and posterior sacral foramen were clearly in focus. Using fluoroscopic guidance, a 25 gauge 3.5 needle was placed on the posterior inferior edge of the sacral foramen. The needle was then slowly walked into the nerve root foramen. A lateral fluoroscopic projection was used to advance the needle carefully into the epidural space. Using AP fluoroscopic projection, 1.0 cc of Omnipaque (240 mg/cc) was injected through the needle and a neurogram was produced. There was clear dye spread through the nerve root sheath and into the epidural space. There was no cerebrospinal fluid or blood aspirated from the needle. A preservative free solution of 1.0 cc of 1% Lidocaine and 0.5 cc of dexamethasone (10 mg/cc) was injected. There were no signs or symptoms of intrathecal or intravascular injection. The needle was removed, intact. The patient was taken to the recovery area. The patient remained in stable condition with no apparent complications. Post procedure instructions were given to the patient and a follow up appointment was confirmed. The patient was also discharged with information on how to reach the clinic or operations expert physician at anytime for questions or complaints Progress Notes * Jim VIVAS (Wiley): (68 yo F)Acc No.[id number]:05/05/2024 Progress Note Patient: Shaq Jim WOOD (Wiley) Provider: Shaq Johnson MD :1955 A ge:68 Y S ex:Female Date:05/05/2024 Address:[address] [place] [address] [facility] Subjective: * Chief Complaints: * R T L5 S1 SNRB * HPI: * Pain Evaluation: Patient presents to the office today with complaints of low back pain They state the pain has been present for 6 months and began gradually and has gotten worse over time . The pain is more right sided and radiation of the pain occurs right buttocks, right leg. Associated symptoms include numbness and tingling . The quality of pain is moderate , constant . The patient rates their pain a 8/10 using the numerical rating scale. They describe their pain as shooting, dull, aching and sharp and worsens with sitting and standing . Improvement in pain occurs with walking . They have tried the following conservative treatments with minimal improvements; physical therapy. Imaging studies performed include MRI of the lumbar spine . The patient comes in today upon referral from Burt Ken . The patient does not take a blood thinner . Wiley is a 68-year-old gentleman with history of right lower extremity pain. This began approximately 7 months ago and relates this possibly to occurring after undergoing a TURP procedure. Scribes pain across his low back which radiates into his right buttock into his posterior thigh and posterior lateral calf and foot. He has tried physical therapy and [id number] medications along with other conservative measures symptoms persist. He underwent MRI of his lumbar spine that shows multilevel degenerative changes with varying degrees of stenosis. His pain is of radicular nature along the right L5 and S1 nerve root distribution. Discussed with him a trial of right L5 and S1 selective nerve root block at this point and he wished to proceed. Wiley returns not undergo planned right L5 and S1 selective nerve root block. * Medical History: * Surgical History: T URP 10/2023Mole Lesion- right arm 10/2023Melanoma 1987 * Hospitalization/Major Diagno stic Procedure: N o Hospitalization History. * Family History: N o Family History documented.. * Medications: T akingBenazepril HCl Diclofenac Sodium Medication List reviewed and reconciled with the patientTaking Benazepril HCl Taking Diclofenac Sodium Medication List reviewed and reconciled with the patient * Allergies: n o[Allergies Verified] Objective: * Vitals: H t: 71 in, Wt:204lbs, Pain scale:81-10, BP:170/95mm Hg, Temp:98.2F, HR:72/min, RR:20/min, BMI:28.45Index. * Examination: G eneral Examination: G eneral: T he patient appears well-groomed and nourished. There are no visible deformities on general examination. The patient has a normal body habitus for their stated age. P sychiatric: T he patient was alert and oriented to person, place, and time. The patient's affect was appropriate. The patient is in no acute distress. Recent and past memory seemed appropriate as tested by the patient's ability to recall past and present particulars of the history. Reasoning and judgment seemed normal. The patient did not express any suicidal ideations or gestures. The patient's mood was appropriate. The patient did not exhibit any signs of undue depression, anxiety, or agitatation. S kin: S kin is of normal color, moistness, and turgor. No abnormal lesions, rashes, or masses were noted. H EENT: H ead is normocephalic and atraumatic. Pupils are equal and react to light and accommodation. Conjunctiva are nonerythematous and sclerae anicteric. The ears appear normal in configuration without lesions or deformities. The nose is free of obvious discharge. The lips, tongue, oropharynx appear moist and pink without obvious lesions. R espiratory: L ungs are clear of rales or rhonchi to auscultation. The patient is breathing easily with no intercostal retractions are any signs of distress. C ardiovascular: A uscultation reveals a regular rate and rhythm without appreciable murmurs. No extra sounds were noted. No peripheral edema was noted. M usculoskeletal/Neurologic: T he patient's gait is antalgic. There are no focal motor or sensory deficits. Positive straight leg raise on the right. Assessment: * Assessment: 1. R adiculopathy, lumbar region - M54.16 (Primary) 2 . O ther intervertebral disc degeneration, lumbar region - M51.36 Plan: * Treatment: * Procedures: L umbar Multilevel Transforaminal Epidural Injection: Right L5 and S1 T he patient was identified in the holding area and the operative permit was explained and signed. I have discussed with the patient the risks, benefits, side effects and complications of a fluoroscopically guided multiple level transforaminal lumbar epidural injections. I have answered the patient's questions regarding the procedure and have given the patient the opportunity to refuse the procedure. I also have discussed alternative methods of treatment. The patient stated understanding of the procedure and wished to proceed with a fluoroscopically guided multiple level transforaminal lumbar epidural injections. The patient was taken to the fluoroscopic suite and placed on a C-arm table in the prone position. Noninvasive blood pressure, pulse oximetry, and an EKG tracing were used to monitor the patient continuously throughout the procedure. A nurse was in attendance for the duration of the procedure to carefully monitor the patient. Please refer to the nursing record for vital sign documentation and for any doses of sedatives and medications. I was present and gave the order for any medications given to the patient. The procedure was performed on the right L5 nerve root. A sterile Betadine preparation and then a sterile drape were applied to the lumbosacral region of the back. The fluoroscopic unit was manipulated in a caudad/cephalad position until the disc spaces of the joints were in clear focus. The unit was then positioned in the oblique view until the pedicle and articulating processes were clearly visible. Using fluoroscopic guidance, a 5 inch, 25 gauge Quincke needle was placed on the six o'clock position of the pedicle. The needle was then slowly walked off the lamina into the nerve root foramen. A lateral fluoroscopic projection showed the needle tip entering the superior posterior aspect of the desired intervertebral foramen. Using AP fluoroscopic projection, 1.0 cc of Omnipaque (240 mg/cc) was injected through the needle and a neurogram was produced. There was clear dye spread through each nerve root sheath and into the epidural space. There was no cerebrospinal fluid or blood aspirated from the needle. A preservative free solution of 1.0 cc of 1% lidocaine and 0.5 cc of dexamethasone (10 mg/cc) of was injected. There were no signs or symptoms of intrathecal or intravascular injection. The needle was removed intact. The procedure was performed on the right S1 nerve root. A sterile Betadine preparation and then a sterile drape were applied to the lumbosacral region of the back. The fluoroscopic unit was manipulated in a caudad/cephalad position until the anterior and posterior sacral foramen were clearly in focus. Using fluoroscopic guidance, a 25 gauge 3.5 needle was placed on the posterior inferior edge of the sacral foramen. The needle was then slowly walked into the nerve root foramen. A lateral fluoroscopic projection was used to advance the needle carefully into the epidural space. Using AP fluoroscopic projection, 1.0 cc of Omnipaque (240 mg/cc) was injected through the needle and a neurogram was produced. There was clear dye spread through the nerve root sheath and into the epidural space. There was no cerebrospinal fluid or blood aspirated from the needle. A preservative free solution of 1.0 cc of 1% Lidocaine and 0.5 cc of dexamethasone (10 mg/cc) was injected. There were no signs or symptoms of intrathecal or intravascular injection. The needle was removed, intact. The patient was taken to the recovery area. The patient remained in stable condition with no apparent complications. Post procedure instructions were given to the patient and a follow up appointment was confirmed. The patient was also discharged with information on how to reach the clinic or operations expert physician at anytime for questions or complaints. * Procedure Codes: A 4550 TRAY FEESUPPLY [id number] LUMBAR [id number] LUMBAR SNRI * Preventive Medicine: Counseling: B P Management: PRE-HYPERTENSIVE FOLLOW-UP PLAN: F ollow-up 1 month LIFESTYLE RECOMMENDATION: Jesse alvarez education REFERRAL TO ALTERNATIVE / PRIMARY CARE PROVIDER: Edenilson bro to general practitioner * * OMER RETENTION REPRESENTATIVE Sign off status: Completed true * Provider: Shaq Johnson MD Date: 05/05/2024 Generated for Ajit mensah/Lee/Huberitting on: 0 06/24/2024 11:34 AM CDT History and Physical Notes * Examination Category Sub-Category Detail Notes Category Not es General Examination General: The patient appears well-groomed and nourished. There are no visible deformities on general examination. The patient has a normal body habitus for their stated age. Psychiatric: The patient was alert and oriented to person, place, and time. The patient's affect was appropriate. The patient is in no acute distress. Recent and past memory seemed appropriate as tested by the patient's ability to recall past and present particulars of the history. Reasoning and judgment seemed normal. The patient did not express any suicidal ideations or gestures. The patient's mood was appropriate. The patient did not exhibit any signs of undue depression, anxiety, or agitatation. Skin: Skin is of normal color, moistness, and turgor. No abnormal lesions, rashes, or masses were noted. HEENT: Head is normocephalic and atraumatic. Pupils are equal and react to light and accommodation. Conjunctiva are nonerythematous and sclerae anicteric. The ears appear normal in configuration without lesions or deformities. The nose is free of obvious discharge. The lips, tongue, oropharynx appear moist and pink without obvious lesions. Respiratory: Lungs are clear of rales or rhonchi to auscultation. The patient is breathing easily with no intercostal retractions are any signs of distress. Cardiovascular: Auscultation reveals a regular rate and rhythm without appreciable murmurs. No extra sounds were noted. No peripheral edema was noted. Musculoskeletal/Neurologic: The patient's gait is antalgic. There are no focal motor or sensory deficits. Positive straight leg raise on the right
--- OUTSIDE RECORDS SUMMARY | 2024-06-24 11:34 | XMS_ITS | Clinical Summary ---
Author Organization [facility] Address [address] [place] [address] Care Team Providers Care Fish Salter Name Role Phone Burt Ken MD Primary Care Provider [phone] Allergies No known active allergies Medications meloxicam [...] cheek - Left 02/25/2018 Knee pain 03/14/2015 Surgical History Surgery Date Site/Laterality Comments MELANOMA RESECTION Medical History Medical History Date Comments Melanoma (HCC) 1984 left posterior t high Hypertension Arthritis Family History Medical History Relation Name Comments No Known Problems Mother Relation Name Status Comments Mother Social History Tobacco Use Types Packs/Day Years [...] on file 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 Gender Identity Not on file Sexual Orientation Not on file Obstetrics History Last Filed Vital Signs Vital Sign Reading Time Taken Comments Blood Pressure 146/91 02/25/2018 12:36 PM PUBLIC ADDRESS SYSTEM OPERATOR Pulse 66 02/25/2018 12:36 PM PUBLIC ADDRESS SYSTEM OPERATOR Temperature - - Respiratory Rate - - Oxygen Saturation 98% 02/25/2018 12:36 PM PUBLIC ADDRESS SYSTEM OPERATOR Inhaled Oxygen Concentration - - Weight 95.3 kg (210 lb) 09/27/2021 1:13 PM CDT Height 185.4 cm (6' 1 ) 09/27/2021 1:13 PM CDT Body Mass Index 27.71 09/27/2021 1:13 PM CDT Plan of Treatment Health Maintenance Due Date Last Done Comments Colon Cancer Screening-Colonoscopy 1955 Depression Screening 1955 Fall Risk Assessment 1955 Hepatitis C Screening 1955 DTaP/Tdap/Td Vaccine (1 - Tdap) 1964 Hepatitis B Screening 1971 Pneumococcal vaccine 65+ (1 of 1 - PCV) 2003 Zoster Vaccine (1 of 2) 2003 Abdominal Aortic Aneurysm (A AA) Screen 2018 Well Visit 65+ 2018 Covid-19 Vaccine ( season) 2023 03/16/2021, 07/04/2020, 06/02/2020 Influenza Vaccine (#1) 2023 Insurance [employer] [facility] [employer] MEDICARE [employer] [facility] [place] [address] Care Teams Fish Salter Relationship Specialty Start Date End Date Burt Ken MD PCP - General Family Medicine 01/28/18
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
[2024-06-24 16:49] LABS: Prostate Specific Antigen 2.2 ng/mL (< OR = 4.0)
== END 2024-06-24 10:17 | disposition home or self-care (01) ==
PROVIDERS: PCP Family Medicine; Visit Provider Family Medicine
DX: N40.1 Benign prostatic hyperplasia with lower urinary tract symptoms (principal); R35.1 Nocturia; Z12.5 Encounter for screening for malignant neoplasm of prostate
CPT/HCPCS: 36415; 84153; G0103

== ENCOUNTER 2024-07-21 11:36 | Outpatient (CLI) | payer MEDICARE, SELFPAY ==
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
== END 2024-07-21 11:37 | disposition home or self-care (01) ==
LOC: GOSHIMG 11:36
PROVIDERS: PCP Physician Assistant Medical; Visit Provider Physician Assistant Medical
DX: R07.81 Pleurodynia (principal)
CPT/HCPCS: 71111

== ENCOUNTER 2024-07-23 09:13 | Outpatient (CLI) | payer MEDICARE, SELFPAY ==
--- NOTE | ~2024-07-23 | US_ITS ---
Abdominal Sonogram: Real-time sonographic imaging of the abdomen was performed. Clinical History: Abdominal pain Findings: The liver appears mildly echogenic with no evidence of solid mass lesion or bile duct dila tation. 1.2 cm left hepatic lobe cyst present. Main portal vein demonstrates normal direction of flow . The spleen is normal in size without evidence of focal lesion. The gallbladder is well distended, and appears normal with no evidence of gallstone or wall thickening. The common bile duct measures 4 mm. The visualized pancreas, aorta, and IVC are unremarkable. The right kidney measures 11.3 cm in length and the left kidney measures 11.9 cm. There is no hydronephrosis or renal calculus. Left uppe r pole renal cyst present. Impression: Probable diffuse fatty infiltration of liver. Small left hepatic lobe cyst. Reviewed, dictated and finalized at [facility]. Impression: Probable diffuse fatty infiltration of liver. Small left hepatic lobe cyst.
== END 2024-07-23 09:14 | disposition home or self-care (01) ==
LOC: GOSHIMG 09:13
PROVIDERS: PCP Physician Assistant Medical; Visit Provider Physician Assistant Medical
DX: R10.11 Right upper quadrant pain (principal); K76.89 Other specified diseases of liver
CPT/HCPCS: 76700

== ENCOUNTER 2024-09-18 08:38 | Outpatient (CLI) | payer MEDICARE, SELFPAY ==
--- NOTE | ~2024-09-18 | CT_ITS ---
EXAMINATION: CT abdomen pelvis w con DATE: 09/18/2024 09:17 INDICATION: Right upper quadrant pain TECHNIQUE: Computed tomography (CT) of the abdomen and pelvis was performed with 100 cc Omnipaque 350 intravenous contrast. The dose-length product was 930.56 mGy-cm. Automated exposure control and iter ative reconstruction technique were employed. COMPARISON: None. FINDINGS: Lung bases unremarkable. Heart size normal. No significant pleural or pericardial effusion. There are liver cysts. Gallbladder is present. The spleen, pancreas, adrenal glands are unremarkable . There are bilateral renal cysts. There is a nonobstructing left renal stone measuring 3 mm. Nonobst ructive bowel gas pattern. Colonic diverticulosis without evidence for diverticulitis. There is a rukhsana dder diverticulum. Enlarged prostate gland. Mild bladder wall thickening, likely secondary to outlet obstruction. No significant vascular abnormality. Severe lower thoracic and lumbar spondylosis. IMPRESSION: 1. No acute abdominal abnormality. 2: Mild bladder wall thickening, likely secondary to outlet obstruction from enlarged prostate gland. Bladder diverticulum noted right posterior lateral margin of the bladder. 3: Liver and renal cysts. 4: Nonobstructing left nephrolithiasis. Reviewed, dictated and finalized at location A. IMPRESSION: 1. No acute abdominal abnormality. 2: Mild bladder wall thickening, likely secondary to outlet obstruction from en larged prostate gland. Bladder diverticulum noted right posterior lateral daniele n of the bladder. 3: Liver and renal cysts. 4: Nonobstructing left nephrolithiasis.
--- OUTSIDE RECORDS SUMMARY | 2024-09-18 08:44 | XMS_ITS | Referral Summary ---
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 Gender Identity Not on file Sexual Orientation Not on file Last Filed Vital Signs Vital Sign Reading Time Taken Comments Blood Pressure 146/91 02/25/2018 12:36 PM MOTOR BIKE MECHANIC Pulse 66 02/25/2018 12:36 PM MOTOR BIKE MECHANIC Temperature - - Respiratory Rate - - Oxygen Saturation 98% 02/25/2018 12:36 PM MOTOR BIKE MECHANIC Inhaled Oxygen Concentration - - Weight 95.3 kg (210 lb) 09/27/2021 1:13 PM CDT Height 185.4 cm (6' 1) 09/27/2021 1:13 PM CDT Body Mass Index 27.71 09/27/2021 1:13 PM CDT Plan of Treatment Not on file Insurance [facility] MEDICARE [facility] MEDICARE Care Teams Claim Review Medical Director Relationship Specialty Start Date End Date Burt Ken MD PCP - General Family Medicine 01/28/18
--- OUTSIDE RECORDS SUMMARY | 2024-09-18 08:44 | XMS_ITS | Clinical Summary ---
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 Gender Identity Not on file Sexual Orientation Not on file Obstetrics History Last Filed Vital Signs Vital Sign Reading Time Taken Comments Blood Pressure 146/91 02/25/2018 12:36 PM PRODUCT TESTER Pulse 66 02/25/2018 12:36 PM PRODUCT TESTER Temperature - - Respiratory Rate - - Oxygen Saturation 98% 02/25/2018 12:36 PM PRODUCT TESTER Inhaled Oxygen Concentration - - Weight 95.3 [...] season) 2023 03/16/2021, 07/04/2020, 06/02/2020 Influenza Vaccine (Season Ended) 2024 Insurance [employer] [facility] [employer] MED[employer]ARE [employer] [facility] [place] [address] Care Teams Shared Services And Outsourcing Manager Relationship Specialty Start Date End Date Burt Ken MD PCP - General Family Medicine 01/28/18
--- OUTSIDE RECORDS SUMMARY | 2024-09-18 08:44 | XMS_ITS | Patient Health Record ---
Author Organization [facility] Address [address] [place] [address] Care Team Providers Care Cabinet Finisher Name Role Phone Steven Johnson Unavailable [phone] Burt Ken Unavailable Unavailable Allergies No Known Allergies Reason For Referral Reason Finding of elevated blood pressure Diagnosis 1 Elevated blood-press ure reading, without diagnosis of hypertension (R03.0) [facility] Referring Provider First Name Referring Provider Last Name Alex Referring Provider Speciality Pain Medic ine Referred Provider Specialty Internal Med icine Referral Priority Routine Reason (R) L5 and S1 SNRB Diagnosis 1 Radiculopathy, lumba r region (M54.16) [facility] Referred Provider Steven Johnson Referred Address [address],[place], [place],[address],[place] Referred Provider Specialty Pain Medicin e Procedure 1 LUMBAR SNRI (28760) Procedure 2 LUMBAR SNRI (84683) General Notes approved through leo core, scanned in chart, IngridChristiannehy 04/30/2024 12:49:14 PM > Referral Priority Routine Reason eval and treat for l ow back pain Diagnosis 1 Radiculopathy, lumba r region (M54.16) [facility] Referring Provider First Name Referring Provider Last Name Alex Referring Provider Speciality Pain Medic ine Referred Provider Specialty Physical The rapist Referral Priority Routine Reason L5-S1 Translaminar Diagnosis 1 Radiculopathy, lumba r region (M54.16) Referred Organization [facility] Referred Provider Steven Johnson Referred Address [address],[place], [place],[address],[place] Referred Provider Specialty Pain Medicin e Procedure 1 EPIDURAL LUMBAR CAUD AL W/ IMAGING GUIDANCE (87832) General Notes approved through leo core, scanned in chart, Anna Quintero 06/29/2024 09:52:01 AM > Referral Priority Routine Reason Finding of elevated blood pressure Diagnosis 1 Elevated blood-press ure reading, without diagnosis of hypertension (R03.0) Referral Organization [facility] Referring Provider First Name Referring Provider Last Name Alex Referring Provider Speciality Pain Medic ine Referral Priority Routine Reason (R) L4/5 and L5/S1 M BB #1 Diagnosis 1 Spondylosis without myelopathy or radiculopathy, lumbar region (M47.816) Referred Organization [facility] Referred Provider Steven Johnson Referred Address [address],[place], [place],[address],[place] Referred Provider Specialty Pain Medicin e Procedure 1 FACET LUMBAR /SACRAL (94866) Procedure 2 FACET LUM/SACR 2ND L EV (18170) General Notes approved through leo core, scanned in chart, Anna Quintero 07/24/2024 01:47:32 PM > Referral Priority Routine Reason Finding of elevated blood pressure Diagnosis 1 Elevated blood-press ure reading, without diagnosis of hypertension (R03.0) Referral Organization [facility] Referring Provider First Name Referring Provider Last Name Alex Referring Provider Speciality Pain Medic ine Referral Priority Routine Reason Finding of elevated blood pressure Diagnosis 1 Elevated blood-press ure reading, without diagnosis of hypertension (R03.0) Referral Organization [facility] Referring Provider First Name Referring Provider Last Name Alex Referring Provider Speciality Pain Medic ine Referral Priority Routine Reason (R) L4/5 and L5/S1 M BB #2 Diagnosis 1 Spondylosis without myelopathy or radiculopathy, lumbar region (M47.816) Referred Organization [facility] Referred Provider Steven Johnson Referred Address [address],[place], [place],[address],[place] Referred Provider Specialty Pain Medicin e Procedure 1 FACET LUMBAR /SACRAL (87618) General Notes approved through tray do, talked to Julio at [phone], call ref: [id number]: case approved under [id number], Anna Quintero 08/26/2024 09:55:03 AM > Referral Priority Routine Reason Finding of elevated blood pressure, ref sent to PCP Diagnosis 1 Elevated blood-press ure reading, without diagnosis of hypertension (R03.0) Referral Organization [facility] Referring Provider First Name Referring Provider Last Name Alex Referring Provider Speciality Pain Medic ine Referred Provider Specialty General phys ician Referral Priority Routine Reason (R) L4/5 and L5/S1 R F Diagnosis 1 Spondylosis without myelopathy or radiculopathy, lumbar region (M47.816) [facility] Referred Provider Steven Johnson Referred Address [address],[place], [place],[address], Referred Provider Specialty Pain Medicin e Procedure 1 DEST. LUMSCRL RF BOAZ ROLYTIC (06091) Procedure 2 DEST LUM/SACR RF EA ADDL LEV (23567) General Notes approved through leo core, scanned in chart, Anna Quintero 09/03/2024 08:15:17 AM > Referral Priority Routine Medications Medication SIG (Take, Route, Fr equency, Duration) Notes Start Date End Date Status Diclofenac Sodium Ac tive Benazepril HCl Activ e Social History Tobacco Use: Social History Observation [...] Problem Status W/U Status Risk Notes Problem Lumbosacral spondylosis without myelopathy (30900978) Spondylosis without myelopathy or radiculopathy, lumbar region (M47.816) Active confirmed Problem Degeneration of lumbar intervertebral disc (89828012) Other intervertebral disc degeneration, lumbar region (M51.36) Active confirmed Problem Lumbar radiculopathy (100852151) Radiculopathy, lumbar region (M54.16) Active confirmed Vital Signs Heart Rate 65 /min 09/02/2024 Temperature 97.3 degrees Fahrenheit 09/02/2024 Respiratory Rate 18 /min 09/02/2024 Blood pressure diastolic 92 mm Hg 09/02/2024 Height 71 in 09/02/2024 Blood pressure systolic 164 mm Hg 09/02/2024 Weight 208 lbs 09/02/2024 BMI 29.01 kg/m2 09/02/2024 Encounters Encounter Location Date Provider Diagnosis [facility] [address] [place] [phone] 04/29/2024 [place] Radiculopathy, lumba r region M54.16 and Other intervertebral disc degeneration, lumbar region M51.36 [facility] [address] [phone] 05/05/2024 [facility] Radiculopathy, lumba r region M54.16 and Other intervertebral disc degeneration, lumbar region M51.36 [facility] [address] [place] [phone] 06/26/2024 [facility] Radiculopathy, lumba r region M54.16 and Other intervertebral disc degeneration, lumbar region M51.36 [facility] [address] [place] [phone] 06/30/2024 [facility] Radiculopathy, lumba r region M54.16 and Other intervertebral disc degeneration, lumbar region M51.[address] [facility] [address] [place] [address] [place] [phone] 07/24/2024 [facility] Spondylosis without myelopathy or radiculopathy, lumbar region M47.[address] [facility] [address] [place] [address] [place] [phone] 07/30/2024 [facility] Spondylosis without myelopathy or radiculopathy, lumbar region M47.[address] [facility] [address] [place] [phone] 09/02/2024 Steven Johnson Spondylosis without myelopathy or radiculopathy, lumbar region M47.[address] [facility] [address] [place] [phone] 05/12/2024 Steven Johnson [facility] [address] [place] [address] Road [address] [place] [phone] 04/29/2024 Steven Johnson [facility] [address] [place] [address] Road [address] [place] [phone] 06/26/2024 Steven Johnson [facility] [address] [place] [address] [place] [phone] 07/24/2024 Steven Johnson [facility] [address] [place] [address] [place] [phone] 07/30/2024 Steven Johnson [facility] [address] [place] [address] [place] [phone] 09/02/2024 Steven Johnson Assessments Encounter Date Diagnosis (ICD [...] as necessary. Consider translaminar approach for failure. 06/30/2024 Radiculopathy, lumbar region (ICD-10 - M54.16) 1. Proceed with L5-S1 translaminar lumbar epidural steroid injection.2. Return to clinic as necessary. 07/24/2024 Spondylosis without myelopathy or radiculopathy, lumbar region (ICD-10 - M47.816) 1. Schedule patient for right sided lumbar facet blocks via medial branch nerve blocks at the L4-L5 and L5-S1 levels diagnostic.2. Return for above procedure after insurance authorization. 07/30/2024 Spondylosis without myelopathy or radiculopathy, lumbar region (ICD-10 - M47.816) 09/02/2024 Spondylosis without myelopathy or radiculopathy, lumbar region (ICD-10 - M47.816) 1. Proceed with right sided confirmatory two-level lumbar facet blocks at the L4-L5 and L5-S1 levels via medial branch nerve blocks.2. Return to clinic in 2 to 4 weeks for possible radiofrequency denervation. 06/26/2024 Radiculopathy, lumbar region (ICD-10 - M54.16) 1. Schedule patient for L5-S1 translaminar lumbar epidural steroid injection.2. Return to clinic for above procedure after insurance authorization.3. Continue physical therapy. Patient has approximately 5 more weeks. 06/30/2024 Other intervertebral disc degeneration, lumbar region (ICD-10 - M51.36) 06/26/2024 Other intervertebral disc degeneration, lumbar region (ICD-10 - M51.36) 05/05/2024 Other intervertebral disc degeneration, lumbar region (ICD-10 - M51.36) 06/26/2024 Other The risk of thi s procedure were discussed with the patient in which they verbalized understanding and wished to proceed. The patient will continue to be part of a comprehensive pain management program. 06/30/2024 Other The risk of thi s procedure were discussed with the patient in which they verbalized understanding and wished to proceed. The patient will continue to be part of a comprehensive pain management program. 07/24/2024 Other The risk of thi s procedure were discussed with the patient in which they verbalized understanding and wished to proceed. The patient will continue to be part of a comprehensive pain management program. Continuation of these procedures are due to pain being severe enough to cause a significant degree of functional disability or vocational disability. and the procedure providing at least 50% sustained improvement of pain and/or 50% objective improvement in function (using same scale as baseline) . Patients primary care provider has been notified regarding continuation of procedures and prolonged repeat steroid use. 07/30/2024 Other The risk of thi s procedure were discussed with the patient in which they verbalized understanding and wished to proceed. The patient will continue to be part of a comprehensive pain management program. Patient reports 90 % of pain relief post procedure. 09/02/2024 Other I will proceed today with a L3, L4, L5 lumbar medial branch blocks #2 under fluoroscopic guidance. The risk of this procedure were discussed with the patient in which they verbalized understanding and wished to proceed. The patient will continue to be a part of an active comprehensive pain management program as tolerated, while and after the treatment plan is carried out. Patient reports 100 % of pain relief post procedure. Plan Of Treatment Next Appt Details Provider Name: Christal fishman, 09/24/2024 02:15:00 PM, [address] [place] [address], [facility] [address], [place], [address], Insurance Providers Payer Name Payer Address Payer Phone Subscriber Number Group Number Insured Name Patient Relationship to Insured Coverage Start Date Coverage End Date [employer] MEDICARE [address] [place] [phone] [id number] Jim Vivas) Self - patient is the insured Medical (General) History Medical History History ICD Code high blood pressure skin cancer prostate problems Surgical History Surgery Date(Month/Year) TURP 10/2023 Mole Lesion- right arm 10/2023 Melanoma 1988
[2024-09-18 09:09] LABS: Estimated Glomerular Filt Rate > 60
== END 2024-09-18 08:39 | disposition home or self-care (01) ==
PROVIDERS: PCP Family Medicine; Visit Provider Physician Assistant Medical
DX: K76.89 Other specified diseases of liver (principal); N28.1 Cyst of kidney, acquired; N20.0 Calculus of kidney
CPT/HCPCS: 74177; Q9967

== ENCOUNTER 2024-10-07 15:52 | Outpatient (CLI) | payer MEDICARE, SELFPAY ==
[2024-10-07 19:11] LABS: Alanine Aminotransferase 23 U/L (6-50); Albumin Level 4.2 g/dL (3.5-5.1); Alkaline Phosphatase 76 U/L (38-126); Aspartate Amino Transferase 41 U/L (17-59); Bilirubin,Total 0.7 mg/dL (0.2-1.3); Total Protein 7.2 g/dL (6.3-8.2)
== END 2024-10-07 15:53 | disposition home or self-care (01) ==
LOC: ANHGOSHLAB 15:53
PROVIDERS: PCP Family Medicine; Visit Provider Nurse Practitioner Family
DX: K76.0 Fatty (change of) liver, not elsewhere classified (principal)
CPT/HCPCS: 36415; 80076

== ENCOUNTER 2024-12-15 01:28 | Day surgery (SDC) | payer MEDICARE, SELFPAY ==
[2024-11-26 09:07] VITALS: BMI 28.1
--- OUTSIDE RECORDS SUMMARY | 2024-12-15 01:32 | XMS_ITS | Clinical Summary ---
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 Gender Identity Not on file Sexual Orientation Not on file Obstetrics History Last Filed Vital Signs Vital Sign Reading Time Taken Comments Blood Pressure 146/91 02/25/2018 12:36 PM POLYTECHNIC TEACHER Pulse 66 02/25/2018 12:36 PM POLYTECHNIC TEACHER Temperature - - Respiratory Rate - - Oxygen Saturation 98% 02/25/2018 12:36 PM POLYTECHNIC TEACHER Inhaled Oxygen Concentration - - Weight 95.3 [...] Visit 65+ 2018 Covid-19 Vaccine ( season) 2024 03/16/2021, 07/04/2020, 06/02/2020 Influenza Vaccine (#1) 2024 Insurance [employer] MEDIC[employer] MEDICARE [facility] Address: [address] [address] [place] [address] [place] [address] Care Teams Mason Helper Relationship Specialty Start Date End Date Burt Ken MD PCP - General Family Medicine 01/28/18
--- OUTSIDE RECORDS SUMMARY | 2024-12-15 01:32 | XMS_ITS | Patient Health Record ---
Author Organization [facility] Address [address] [place] [address] Care Team Providers Care Marketing Traffic Manager Name Role Phone Steven Johnson Unavailable [phone] Burt Ken Unavailable Unavailable Allergies No Known Allergies Reason For Referral Reason Finding of elevated blood pressure Diagnosis 1 Elevated blood-press ure reading, without diagnosis of hypertension (R03.0) [facility] Referring Provider First Name Referring Provider Last Name Alex Referring Provider Speciality Pain Medic ine Referred Provider Specialty Internal Med icine Referral Priority Routine Reason (R) L5 and S1 SNRB Diagnosis 1 Radiculopathy, lumba r region (M54.16) Ref[facility] Referred Provider Stevne Johnson Referred Address [address],[place], [place],[address],[place] Referred Provider Specialty Pain Medicin e Procedure 1 LUMBAR SNRI (27816) Procedure 2 LUMBAR SNRI (14864) General Notes approved through leo core, scanned in chart, IngridChristiannehy 04/30/2024 12:49:14 PM > Referral Priority Routine Reason eval and treat for l ow back pain Diagnosis 1 Radiculopathy, lumba r region (M54.16) Referral Organization [facility] Referring Provider First Name Referring Provider Last Name Alex Referring Provider Speciality Pain Medic ine Referred Provider Specialty Physical The rapist Referral Priority Routine Reason L5-S1 Translaminar Diagnosis 1 Radiculopathy, lumba r region (M54.16) Referred Organization [facility] Referred Provider Steven Johnson Referred Address [address],[place], [place],[address],[place] Referred Provider Specialty Pain Medicin e Procedure 1 EPIDURAL LUMBAR CAUD AL W/ IMAGING GUIDANCE ([id number]) General Notes approved through leo core, scanned in chart, Anna Quintero 06/29/2024 09:52:01 AM > Referral Priority Routine Reason Finding of elevated blood pressure Diagnosis 1 Elevated blood-press ure reading, without diagnosis of hypertension (R03.0) Referral Organization [facility] Referring Provider First Name Referring Provider Last Name Alex Referring Provider Speciality Pain Medic ine Referral Priority Routine Reason (R) L4/5 and L5/S1 M BB #1 Diagnosis 1 Spondylosis without myelopathy or radiculopathy, lumbar region (M47.816) Referred Organization [facility] Referred Provider Steven Johnson Referred Address [address],[place], [place],[address],[place] Referred Provider Specialty Pain Medicin e Procedure 1 FACET LUMBAR /SACRAL (57372) Procedure 2 FACET LUM/SACR 2ND L EV (20472) General Notes approved through leo core, scanned in chart, Anna Quintero 07/24/2024 01:47:32 PM > Referral Priority Routine Reason Finding of elevated blood pressure Diagnosis 1 Elevated blood-press ure reading, without diagnosis of hypertension (R03.0) Referral Organization [facility] Referring Provider First Name Referring Provider Last Name Alex Referring Provider Speciality Pain Medic ine Referral Priority Routine Reason Finding of elevated blood pressure Diagnosis 1 Elevated blood-press ure reading, without diagnosis of hypertension (R03.0) Referral Organization [facility] Referring Provider First Name Referring Provider Last Name Alex Referring Provider Speciality Pain Medic ine Referral Priority Routine Reason (R) L4/5 and L5/S1 M BB #2 Diagnosis 1 Spondylosis without myelopathy or radiculopathy, lumbar region (M47.816) Referred Organization [facility] Referred Provider Steven Johnson Referred Address [address],[place], [place],[address],[place] Referred Provider Specialty Pain Medicin e Procedure 1 FACET LUMBAR /SACRAL (87454) General Notes approved through tray do, talked to Julio at [phone], call ref: [id number]: case approved under [id number], Quintero Anna 08/26/2024 09:55:03 AM > Referral Priority Routine Reason Finding of elevated blood pressure, ref sent to PCP Diagnosis 1 Elevated blood-press ure reading, without diagnosis of hypertension (R03.0) Referral Organization [facility] Referring Provider First Name Referring Provider Last Name Alex Referring Provider Speciality Pain Medic ine Referred Provider Specialty General phys ician Referral Priority Routine Reason (R) L4/5 and L5/S1 R F Diagnosis 1 Spondylosis without myelopathy or radiculopathy, lumbar region (M47.816) Referred Organization [facility] Referred Provider Steven Johnson Referred Address [address],[place], [place],[address],[place] Referred Provider Specialty Pain Medicin e Procedure 1 DEST. LUMSCRL RF BOAZ ROLYTIC ([id number]) Procedure 2 DEST LUM/SACR RF EA ADDL LEV (26873) General Notes approved through leo core, scanned in chart, Anna Quintero 09/03/2024 08:15:17 AM > Referral Priority Routine Reason (R) SI joint Diagnosis 1 Sacroiliitis, not el sewhere classified (M46.1) Referred Organization [facility] Referred Provider Steven Johnson Referred Address [address],[place], [place],[address],[place] Referred Provider Specialty Pain Medicin e Procedure 1 SACROILIAC STEROID J NT,FLUORO (08906) General Notes approved through leo core, scanned in chart, Anna Quintero 11/27/2024 02:32:03 PM > Referral Priority Routine Reason Finding of elevated blood pressure, ref sent to PCP Diagnosis 1 Elevated blood-press ure reading, without diagnosis of hypertension (R03.0) Referral Organization [facility] Referring Provider First Name Referring Provider Last Name Alex Referring Provider Speciality Pain Medic ine Referred Provider Specialty General prac titioner Referral Priority Routine Medications Medication SIG (Take, Route, Frequency, Duration) Notes Start Date End Date Status Benazepril HCl Activ e Sildenafil Citrate 100 MG TAKE 1 TABLET BY MOUTH ONCE DAILY 30 MINUTES TO 4 HOURS BEFORE SEXUAL ACTIVITY NEEDED Oral; Duration: 30 Days Active Diclofenac Sodium Ac tive Social History Tobacco [...] Problem Status W/U Status Risk Notes Problem Solitary sacroiliitis (497866140) Sacroiliitis, not elsewhere classified (M46.1) Active confirmed Problem Spondylosis without myelopathy or radiculopathy, lumbar region (M47.816) Active confirmed Problem Degeneration of lumbar intervertebral disc (00380607) Other intervertebral disc degeneration, lumbar region (M51.36) Active confirmed Problem Lumbar radiculopathy (267958614) Radiculopathy, lumbar region (M54.16) Active confirmed Vital Signs Heart Rate 76 /min 12/03/2024 Temperature 97.5 degrees Fahrenheit 12/03/2024 Respiratory Rate 18 /min 12/03/2024 Blood pressure diastolic 86 mm Hg 12/03/2024 Height 71 in 12/03/2024 Blood pressure systolic 181 mm Hg 12/03/2024 Weight 208 lbs 12/03/2024 BMI 29.01 kg/m2 12/03/2024 Encounters Encounter Location Date Provider Diagnosis [facility] [address] [place] [phone] 04/29/2024 [place] Radiculopathy, lumba r region M54.16 and Other intervertebral disc degeneration, lumbar region M51.36 [facility] [address] [place] [address] 05/05/2024 [facility] Radiculopathy, lumba r region M54.16 and Other intervertebral disc degeneration, lumbar region M51.36 [facility] [address] [facility] [address] [place] [phone] 06/26/2024 [facility] Radiculopathy, lumba r region M54.16 and Other intervertebral disc degeneration, lumbar region M51.36 [facility] [address] [place] [address] [place] [phone] 06/30/2024 [facility] Radiculopathy, lumba r region M54.16 and Other intervertebral disc degeneration, lumbar region M51.36 [facility] [address] [place] [address] [place] [phone] 07/24/2024 [facility] Spondylosis without myelopathy or radiculopathy, lumbar region M47.816 [facility] [address] [place] [phone] 07/30/2024 [facility] Spondylosis without myelopathy or radiculopathy, lumbar region M47.816 [facility] [address] [place] [address] 09/02/2024 [facility] Spondylosis without myelopathy or radiculopathy, lumbar region M47.816 [facility] [address] [place] [phone] 09/24/2024 [place] Spondylosis without myelopathy or radiculopathy, lumbar region M47.816 [facility] [address] [place] [address] [place] [phone] 11/27/2024 [facility] Sacroiliitis, not elsewhere classified M46.1 [facility] [address] [place] [phone] 12/03/2024 [facility] Sacroiliitis, not elsewhere classified M46.1 [facility] [address] [place] [phone] 05/12/2024 [facility] [address] [place] [address] 10/19/2024 Steven Johnson [facility] [address] [place] [address] Road [address] [place] [phone] 04/29/2024 Steven Johnson [facility] [address] [place] [address] Road [address] [place] [phone] 06/26/2024 Magdalenobrigette [facility] [address] [place] [address] Road [address] [place] [phone] 07/24/2024 greg Johnson [facility] [address] [place] [address] Road [address] [place] [phone] 07/30/2024 greg Johnson [facility] [address] [place] [address] [place] [phone] 09/02/2024 greg Johnson [facility] [address] [place] [phone] 11/23/2024 greg Johnson [facility] [address] [place] [phone] 11/27/2024 Steven Johnson Assessments Encounter Date Diagnosis (ICD [...] to 4 weeks for possible radiofrequency denervation. 09/24/2024 Spondylosis without myelopathy or radiculopathy, lumbar region (ICD-10 - M47.816) 1. Proceed with right L4-L5 and L5-S1 lumbar facet joint radiofrequency denervation.2. Return to clinic as necessary 11/27/2024 Sacroiliitis, not elsewhere classified (ICD-10 - M46.1) 1. Schedule patient for right sacroiliac joint injection.2. Continue diclofenac.3. Return to clinic for above procedure after insurance authorization. 12/03/2024 Sacroiliitis, not elsewhere classified (ICD-10 - M46.1) I will proceed today with a Right sacroiliac joint injection under fluoroscopic guidance. The risk of this procedure were discussed with the patient in which they verbalized understanding and wished to proceed. The patient will continue to be a part of an active comprehensive pain management program as tolerated, while and after the treatment plan is carried out.Return to clinic as necessary 06/26/2024 Radiculopathy, lumbar region (ICD-10 - M54.16) [...] 100 % of pain relief post procedure. 09/24/2024 Other The risk of thi s procedure were discussed with the patient in which they verbalized understanding and wished to proceed. The patient will continue to be part of a comprehensive pain management program. 11/27/2024 Other The risk of thi s procedure [...] of procedures and prolonged repeat steroid use. 12/03/2024 Other Patient reports 50 % of pain relief post procedure. Plan Of Treatment Next Appt Details Provider Name:Steven Samuel kye, 03/08/2025 01:30:00 PM, [address] [facility] [facility] [address], [place], [address], Insurance Providers Payer Name Payer Address Payer Phone Subscriber Number Group Number Insured Name Patient Relationship to Insured Coverage Start Date Coverage End Date [employer] [address] [place] [address] [id number] Jim Vivas) Self - patient is the insured Medical (General) History Medical History History ICD Code high blood pressure skin cancer prostate problems Surgical History Surgery Date(Month/Year) TURP 10/2023 Mole Lesion- right arm 10/2023 Melanoma 1988
[2024-12-15 06:48] VITALS: BP 159/85; PULSE 60; RESP 16; TEMP 36.4; O2SAT 98
[2024-12-15] MEDS: LACTATED RINGERS 1,000 ML 150 ML IV CONT (06:54)
--- NOTE | 2024-12-15 07:30 | WPDANESEPPF ---
Anes - Initial Pre Proc Eval Procedure: Operation Date: 12/15/24 07:45 Proposed Procedures p Esophagogastroduodenoscopy - Berlin Dutton MD Date/Time: 12/15/24 07:30 Surgeon: Berlin Dutton MD Pre Op Diagnosis: Right upper quadrant pain Patient Data Age: 69 Gender: M Height: 1.83 m Weight: 96.6 kg Last Vital Signs Temp 97.5 F L 12/15/24 06:48 Pulse 60 12/15/24 06:48 Resp 16 12/15/24 06:48 BP 159/85 H 12/15/24 06:48 Pulse Ox 98 12/15/24 06:48 O2 Del Method Room Air 12/15/24 06:48 Allergies Allergy/AdvReac Type Severity Reaction Status Date / Time No Known Allergies Allergy Verified 12/15/24 06:43 Home Medications ?Medication ?Instructions ?Recorded ?Confirmed ?Type multivitamin 1 tablet PO DAILY 10/22/23 12/15/24 History benazepril 20 mg tablet 20 mg PO DAILY #90 tabs 07/13/24 12/15/24 Rx sildenafil 100 mg tablet 100 mg PO DAILY PRN sexual 08/31/24 11/26/24 Rx activity #30 tabs diclofenac sodium 50 mg See Rx Instructions .Route 11/08/24 12/15/24 Rx tablet,delayed release .COMPLEX #90 tabs Patient hx anesthesia problems: none Family hx anesthesia problems: none Results Review: All pre-operative results and documents have been reviewed as part of the pre-operative evaluation. 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 Mother No problems noted. Sibling No problems noted. Social History Social History Smoking packs per day: 1 Smoking cigarettes per day: 20.0 Years smoked: 12 Smoking pack-years: 12.00 Smoking status: Former smoker Second hand tobacco smoke exposure: Yes Substance use: never Substance use type: does not use Do You Feel Safe in your Home?: Yes Lack of Transportation: No Lack of Food: Never True Current Housing: I Have Housing Concerned About Future Housing: No Difficulty Paying Gas/Electric Bills: No Difficulty Paying for Meds: No Currently Unemployed: No Education: Trade/Vocational Certificate Difficulty w/ Childcare or Family Care: No Living arrangements: with family Additional living arrangements comments: 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 Informed Consent: The patient's anesthetic plan and its attendant risks and benefits were discussed with the patient/family/POA. Questions were solicited and answers provided to the satisfaction of the patient/family/POA.
--- NOTE | 2024-12-15 07:57 | P.HP_ITS ---
History of Present Illness History of Present Illness Consent: Risks, benefits, and alternatives have been discussed and questions answered. Patient agrees to proceed with procedure. 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 Mother No problems noted. Sibling No problems noted. Social History Social History Smoking packs per day: 1 Smoking cigarettes per day: 20.0 Years smoked: 12 Smoking pack-years: 12.00 Smoking status: Former smoker Second hand tobacco smoke exposure: Yes Substance use: never Substance use type: does not use Do You Feel Safe in your Home?: Yes Lack of Transportation: No Lack of Food: Never True Current Housing: I Have Housing Concerned About Future Housing: No Difficulty Paying Gas/Electric Bills: No Difficulty Paying for Meds: No Currently Unemployed: No Education: Trade/Vocational Certificate Difficulty w/ Childcare or Family Care: No Living arrangements: with family Additional living arrangements comments: 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 Gender identity (if verbalized by the patient): Male Spiritual care concerns: No Meds Home Medications and Allergies Home Medications ?Medication ?Instructions ?Recorded ?Confirmed ?Type multivitamin 1 tablet PO DAILY 10/22/23 0 12/15/24 History benazepril 20 mg tablet 20 mg PO DAILY #90 tabs /05/0912/15/24 Rx sildenafil 100 mg tablet 100 mg PO DAILY PRN sexual 0 08/31/24 11/26/24 Rx activity #30 tabs diclofenac sodium 50 mg See Rx Instructions .Route 0 11/08/24 12/15/24 Rx tablet,delayed release .COMPLEX #90 tabs Allergies Allergy/AdvReac Type Severity Reaction Status Date / Time No Known Allergies Allergy Verified 12/15/24 06:43 Vital Signs Vital Signs - 24 hr 12/15/24 06:48 Temperature 97.5 F L Pulse Rate 60 Respiratory Rate 16 Blood Pressure 159/85 H Pulse Oximetry 98 Oxygen Delivery Room Air Exam Const: General: comfortable and no acute distress HENMT: Face/Nose/Sinus: Normal nares present Eyes: General: appearance normal, both eyes and all related structures Neck: Neck: no JVD Resp: Auscultation: clear to auscultation bilaterally Cardio: Rate: regular rate Rhythm: regular rhythm GI: Inspection: non-distended GI Palp: Yes Soft to palpation Skin: General skin exam: normal color Neuro: General: gait normal Speech: normal speech Extrem: General: normal to inspection Psych: Mental Status: mental status grossly normal Assessment and Plan Assessment and plan (1) RUQ abdominal pain: Code(s): R10.11 - Right upper quadrant pain Status: Acute Assessment and Plan: egd with bx
--- NOTE | 2024-12-15 08:05 | S_PTH ---
PATIENT: Jim Vivas LOC: [facility]#:[id number] AGE/SX: 69/M ROOM: RE12/15/[address]: Berlin Dutton MD : 1955 BED: DIS: 12/15/2024 SPEC #: [id number] RECD: 12/15/24 09:33 STATUS: [place] REJonathon #: [id number] MOISÉS: 12/15/24 08:[address]: Berlin Dutton DEPT: [facility] Surgical RECD BY: Guzman Gonzalez ENTERED: 12/15/24 09:33 SP TYPE: Surgical OTHR DR: Burt Ken MD Tissues: A - Small Bowel Bx B - Gastric Biopsy Procedures: Hematoxylin and Eosin Stain Gross and Microscopic Level 4
[2024-12-15 08:09] VITALS: BP 124/74; PULSE 57; RESP 15; O2SAT 96
[2024-12-15 08:19] VITALS: BP 134/74; PULSE 57; RESP 14; O2SAT 96
[2024-12-15 08:29] VITALS: BP 132/71; PULSE 56; RESP 16; O2SAT 96
== END 2024-12-15 08:40 | disposition home or self-care (01) ==
PROVIDERS: PCP Family Medicine; Referring Provider Nurse Practitioner Family; Visit Provider Internal Medicine Gastroenterology
PROC: 0DJ08ZZ Inspection of Upper Intestinal Tract, Via Natural or Artificial Opening Endoscopic (ICD-10-PCS; CPT 43239; principal; 2024-12-15 07:45)
DX: R10.11 Right upper quadrant pain (principal); K44.9 Diaphragmatic hernia without obstruction or gangrene; Z87.891 Personal history of nicotine dependence
CPT/HCPCS: 43239; 88305; J2003; J2704; J7120

== ENCOUNTER 2024-12-22 08:59 | Outpatient (CLI) | payer MEDICARE, SELFPAY ==
--- OUTSIDE RECORDS SUMMARY | 2024-12-21 10:30 | XMS_ITS ---
Author Organization [facility] Address [address] [place] [address] Care Team Providers Care Clinical Dermatologist Name Role Phone Steven Johnson Unavailable [phone] Burt Ken Unavailable Unavailable Allergies No Known Allergies Reason For Referral Reason Finding of elevated blood pressure, ref sent to PCP Diagnosis 1 Elevated blood-press ure reading, without diagnosis of hypertension (R03.0) Referral Organization [facility] Referring Provider First Name Referring Provider Last Name Alex Referring Provider Speciality Pain Medic ine Referred Provider Specialty Internal Med icine Referral Priority Routine REASON FOR VISIT BACK PAIN Medications Medication SIG (Take, Route, Frequency, Duration) Notes Start Date End Date Status Sildenafil Citrate 100 MG TAKE 1 TABLET BY MOUTH ONCE DAILY 30 MINUTES TO 4 HOURS BEFORE SEXUAL ACTIVITY NEEDED Oral; Duration: 30 Days Active Diclofenac Sodium Ac tive Benazepril HCl Activ [...] less (1 point) Points 1 Interpretation Negative Vital Signs Height 71 in 12/21/2024 Weight 208 lbs 12/21/2024 Blood pressure systolic 145 mm Hg 12/22/19 25 Blood pressure diastolic 89 mm Hg 025 Temperature 97.6 degrees Fahrenheit 12/22/19 25 Heart Rate 75 /min 12/21/2024 Respiratory Rate 18 /min 12/21/2024 BMI 29.01 kg/m2 12/21/2024 Encounters Encounter Location Date Provider Diagnosis [facility] [address] [address] [place] [address] 12/21/2024 Steven Johnson Radiculopathy, lumba r region M54.16 and Other intervertebral disc degeneration, lumbar region M51.36 Assessments Encounter Date Diagnosis (ICD Code) Assessment Notes Treatment Notes Treatment Clinical Notes Section Notes 12/21/2024 Radiculopathy, lumbar region (ICD-10 - M54.16) 12/21/2024 Other intervertebral disc degeneration, lumbar region (ICD-10 - M51.36) 12/21/2024 Other I will proceed today with a right L4 and L5 lumbar selective nerve root block under fluoroscopic guidance. The risk of this procedure were discussed with the patient in which they verbalized understanding and wished to proceed. The patient will continue to be a part of an active comprehensive pain management program as tolerated, while and after the treatment plan is carried out.Return to clinic as necessary Plan Of Treatment Treatment Notes Assessment Notes Other I will proceed today with a right L4 and L5 lumbar selective nerve root block under fluoroscopic guidance. The risk of this procedure were discussed with the patient in which they verbalized understanding and wished to proceed. The patient will continue to be a part of an active comprehensive pain management program as tolerated, while and after the treatment plan is carried out.Return to clinic as necessary Referrals Referral Date Details 12/21/2024 12/21/2024, Finding of elevated blood pressure, ref sent to PCP Next Appt Details Provider Name:Steven Samuel kye, 03/08/2025 01:30:00 PM, [address] [facility] [address], [address], [place], [address], Procedure Notes * Category Sub-Category Detail Notes Lumbar Multilevel Transforaminal Epidural Injection Right L4 and L5 The patient was identified i n the [...] The procedure was performed on the right L4 nerve root. A sterile Betadine preparation and then a sterile drape were applied to the lumbosacral region of the back. The fluoroscopic unit was manipulated in a caudad/cephalad position until the disc spaces of the joints were in clear focus. The unit was then positioned in the oblique view until the pedicle and articulating processes were clearly visible. Using fluoroscopic guidance, a 3.5 inch, 25 gauge Quincke needle was placed [...] the needle. A preservative free solution of 0.5 cc of 10 mg/cc of dexamethasone and 1.0 cc of 1% Lidocaine was injected. There were no signs or symptoms of intrathecal or intravascular injection. The needle was removed intact. The The procedure was performed on the right [...] were clearly visible. Using fluoroscopic guidance, a 3.5 inch, 25 gauge Quincke needle was placed [...] the needle. A preservative free solution of 0.5 cc of 10 mg/cc of dexamethasone and 1.0 cc of 1% Lidocaine was injected. There were no signs or symptoms of intrathecal or intravascular injection. The needle was removed intact. The patient was taken to the recovery area. The patient remained in stable condition with no apparent complications. Post procedure instructions were given to the patient and a follow up appointment was confirmed. The patient was also discharged with information on how to reach the clinic or avionics installer physician at anytime for questions or complaints Conscious Sedation Statement Moderate Sedation Services We discussed the risks / benefits and technical aspects of having the procedure done under local anesthesia versus moderate sedation while remaining responsive. I asked the patient as to whether they can remain calm and relatively still throughout the procedure, to which the patient stated: []. Based on my experience with other patients undergoing this procedure, I am concerned about the ability of the patient to remain sufficiently still during the procedure, either due to pain or anxiety or both, so as not to compromise the safety of the procedure, as well as to avoid unnecessary distress to the patient. Therefore, based on the nature of this specific procedure, and the responses from the patient, I determined that moderate sedation was medically necessary. A registered nurse who is trained to observe and monitor the patient during moderate sedation was with the patient the entire time of the sedation period. Moderate sedation was provided by the nurse via physician orders, who assisted in the monitoring of the patient's level of consciousness and physiological status. This nurse monitored and recorded vital signs including blood pressure, pulse, oxygen saturation and continuous electrocardiogram (ECG) during this period. In addition, estimates of sedation depth as well as the amounts and timing of the intravenous sedative were also recorded and can be found in the nurse documentation. Progress Notes * Jim VIVAS): (69 yo F)Acc No.[id number]:12/21/2024 Progress Note Patient: S Jim WOOD) Provider: Shaq Johnson MD :[id number] A ge:69 Y S ex:Female Date:12/21/2024 [address] [facility] Subjective: * Chief Complaints: * B ACK PAIN * HPI: * Pain Evaluation: The patient returns to the clinic today to proceed with the lumbar epidural steroid injection for patients moderate to severe pain that was discussed at their last appointment. They have been suffering from this pain for greater than 6 weeks and stated that the pain is severe enough to impact their quality of life and function. For more extensive details of the patients history, please see the previous history and physical taken on 12/17/2024. * Medical History: * Surgical History: T URP 10/2023Mole Lesion- right arm 10/2023Melanoma 1987 * Hospitalization/Major Diagno stic Procedure: N o Hospitalization History. * Family History: F ather: . M other: . N on-Contributory. * Social History: T obacco Use: T obacco Use/Smoking A re you a n onsmoker D rugs/Alcohol: A lcohol Screen (Audit-C) D id you have a drink containing alcohol in the past year? Y es H ow often did you have a drink containing alcohol in the past year? M onthly or less (1 point) P oints 1 I nterpretation N egative Caffeine I ntake: 1 -2 cups per day * Medications: T akingBenazepril HCl Diclofenac Sodium Sildenafil Citrate 100 MG Tablet TAKE 1 TABLET BY MOUTH ONCE DAILY 30 MINUTES TO 4 HOURS BEFORE SEXUAL ACTIVITY NEEDED Oral Medication List reviewed and reconciled with the patientTaking Benazepril HCl Taking Diclofenac Sodium Taking Sildenafil Citrate 100 MG Tablet TAKE 1 TABLET BY MOUTH ONCE DAILY 30 MINUTES TO 4 HOURS BEFORE SEXUAL ACTIVITY NEEDED Oral Medication List reviewed and reconciled with the patient * Allergies: N .K.D.A.no[Allergies Verified] Objective: * Vitals: H t: 71 in, Wt:208lbs, Pain scale:71-10, BP:145/89mm Hg, Temp:97.6F, HR:75/min, RR:18/min, BMI:29.01Index. * Examination: G eneral Examination: G eneral: The patient appears well-groomed and nourished. There [...] L umbar Multilevel Transforaminal Epidural Injection: Right L4 and L5 T he patient was identified in the [...] The procedure was performed on the right L4 nerve root. A sterile Betadine preparation and then a sterile drape were applied to the lumbosacral region of the back. The fluoroscopic unit was manipulated in a caudad/cephalad position until the disc spaces of the joints were in clear focus. The unit was then positioned in the oblique view until the pedicle and articulating processes were clearly visible. Using fluoroscopic guidance, a 3.5 inch, 25 gauge Quincke needle was placed [...] the needle. A preservative free solution of 0.5 cc of 10 mg/cc of dexamethasone and 1.0 cc of 1% Lidocaine was injected. There were no signs or symptoms of intrathecal or intravascular injection. The needle was removed intact. The The procedure was performed on the right [...] were clearly visible. Using fluoroscopic guidance, a 3.5 inch, 25 gauge Quincke needle was placed [...] the needle. A preservative free solution of 0.5 cc of 10 mg/cc of dexamethasone and 1.0 cc of 1% Lidocaine was injected. There were no signs or symptoms of intrathecal or intravascular injection. The needle was removed intact. The patient was taken to the recovery area. The patient remained in stable condition with no apparent complications. Post procedure instructions were given to the patient and a follow up appointment was confirmed. The patient was also discharged with information on how to reach the clinic or avionics installer physician at anytime for questions or complaints. C onscious Sedation Statement: Moderate Sedation Services W e discussed the risks / benefits and technical aspects of having the procedure done under local anesthesia versus moderate sedation while remaining responsive. I asked the patient as to whether they can remain calm and relatively still throughout the procedure, to which the patient stated: []. Based on my experience with other patients undergoing this procedure, I am concerned about the ability of the patient to remain sufficiently still during the procedure, either due to pain or anxiety or both, so as not to compromise the safety of the procedure, as well as to avoid unnecessary distress to the patient. Therefore, based on the nature of this specific procedure, and the responses from the patient, I determined that moderate sedation was medically necessary. A registered nurse who is trained to observe and monitor the patient during moderate sedation was with the patient the entire time of the sedation period. Moderate sedation was provided by the nurse via physician orders, who assisted in the monitoring of the patient's level of consciousness and physiological status. This nurse monitored and recorded vital signs including blood pressure, pulse, oxygen saturation and continuous electrocardiogram (ECG) during this period. In addition, estimates of sedation depth as well as the amounts and timing of the intravenous sedative were also recorded and can be found in the nurse documentation. . * Procedure Codes: A 4550 TRAY FEESUPPLY [id number] LUMBAR SNRI, Modifiers: RT [id number] LUMBAR SNRI, Modifiers: RT * Preventive Medicine: Screenings: F ALL RISK SCREENING Fall Risk Assessment: O ne fall without injury in the past year fell up a step and landed on hands. Plan of Care: D ocumented Type of fall plan of care: B alance, strength and gait training or instruction provided * * Sign off status: Completed true * Provider: Shaq Johnson MD Date: 0 12/21/2024 Generated for Ajit mensah/Lee/Huberitting on: 0 12/22/2024 09:40 AM CDT History and Physical Notes * [...] Positive straight leg raise on the right Consultation Request Notes Referral Date Referring Provider Referred Provider Not es 12/21/2024 Granberg, , Finding of elevated blood pressure, ref sent to PCP
--- OUTSIDE RECORDS SUMMARY | 2024-12-22 09:40 | XMS_ITS | Patient Health Record ---
Author Organization [facility] Address [address] [place] [address] Care Team Providers Care Cash Teller Name Role Phone Steven Johnson Unavailable [phone] Burt Ken Unavailable Unavailable Allergies No Known Allergies Reason For Referral Reason Finding of elevated blood pressure Diagnosis 1 Elevated blood-press ure reading, without diagnosis of hypertension (R03.0) [facility] [place] Referring Provider First Name Referring Provider Last Name Alex Referring Provider Speciality Pain Medic ine Referred Provider Specialty Internal Med icine Referral Priority Routine Reason (R) L5 and S1 SNRB Diagnosis 1 Radiculopathy, lumba r region (M54.16) [facility] [place] [facility] Referred Provider Steven Johnson Referred Address [address],[place], [place],[address],[place] Referred Provider Specialty Pain Medicin e Procedure 1 LUMBAR SNRI (34976) Procedure 2 LUMBAR SNRI (54781) General Notes approved through leo core, scanned in chart, IngridChristiannehy 04/30/2024 12:49:14 PM > Referral Priority Routine Reason eval and treat for l ow back pain Diagnosis 1 Radiculopathy, lumba r region (M54.16) [facility] Referring Provider First Name Referring Provider Last Name Alex Referring Provider Speciality Pain Medic ine Referred Provider Specialty Physical The rapist Referral Priority Routine Reason L5-S1 Translaminar Diagnosis 1 Radiculopathy, lumba r region (M54.16) Referred Organization [facility] Referred Provider Steven Johnson Referred Address [address],[place], [place],[address],[place] Referred Provider Specialty Pain Medicin e Procedure 1 EPIDURAL LUMBAR CAUD AL W/ IMAGING GUIDANCE (72373) General Notes approved through leo core, scanned in chart, Anna Quintero 06/29/2024 09:52:01 AM > Referral Priority Routine Reason Finding of elevated blood pressure Diagnosis 1 Elevated blood-press ure reading, without diagnosis of hypertension (R03.0) Referral Organization [facility] Referring Provider First Name Referring Provider Last Name Alex Referring Provider Speciality Pain Medic ine Referral Priority Routine Reason (R) L4/5 and L5/S1 M BB #1 Diagnosis 1 Spondylosis without myelopathy or radiculopathy, lumbar region (M47.816) Referred Organization [facility] Referred Provider Steven Johnson Referred Address [address],[place], [place],[address],[place] Referred Provider Specialty Pain Medicin e Procedure 1 FACET LUMBAR /SACRAL (89653) Procedure 2 FACET LUM/SACR 2ND L EV (76196) General Notes approved through leo core, scanned in chart, Anna Quintero 07/24/2024 01:47:32 PM > Referral Priority Routine Reason Finding of elevated blood pressure Diagnosis 1 Elevated blood-press ure reading, without diagnosis of hypertension (R03.0) Referral Organization [facility] Referring Provider First Name Referring Provider Last Name Alex Referring Provider Speciality Pain Medic ine Referral Priority Routine Reason Finding of elevated blood pressure Diagnosis 1 Elevated blood-press ure reading, without diagnosis of hypertension (R03.0) Referral Organization [facility] Referring Provider First Name Referring Provider Last Name Alex Referring Provider Speciality Pain Medic ine Referral Priority Routine Reason (R) L4/5 and L5/S1 M BB #2 Diagnosis 1 Spondylosis without myelopathy or radiculopathy, lumbar region (M47.816) Referred Organization [facility] Referred Provider Steven Johnson Referred Address [address],[place], [place],[address],[place] Referred Provider Specialty Pain Medicin e Procedure 1 FACET LUMBAR /SACRAL (93566) General Notes approved through tray do, talked to Julio at [phone], call ref: [id number]: case approved under [id number], Quintero Anna 08/26/2024 09:55:03 AM > Referral Priority Routine Reason Finding of elevated blood pressure, ref sent to PCP Diagnosis 1 Elevated blood-press ure reading, without diagnosis of hypertension (R03.0) Referral Organization [facility] Referring Provider First Name Referring Provider Last Name Alex Referring Provider Speciality Pain Medic ine Referred Provider Specialty General phys ician Referral Priority Routine Reason (R) L4/5 and L5/S1 R F Diagnosis 1 Spondylosis without myelopathy or radiculopathy, lumbar region (M47.816) Referred Organization [facility] Referred Provider Steven Johnson Referred Address [address],[place], [place],[address],[place] Referred Provider Specialty Pain Medicin e Procedure 1 DEST. LUMSCRL RF BOAZ ROLYTIC (31810) Procedure 2 DEST LUM/SACR RF EA ADDL LEV (52100) General Notes approved through leo core, scanned in chart, Anna Quintero 09/03/2024 08:15:17 AM > Referral Priority Routine Reason (R) SI joint Diagnosis 1 Sacroiliitis, not el sewhere classified (M46.1) Referred Organization [facility] Referred Provider Steven Johnson Referred Address [address],[place], [place],[address],[place] Referred Provider Specialty Pain Medicin e Procedure 1 SACROILIAC STEROID J NT,FLUORO (64949) General Notes approved through leo core, scanned in chart, Anna Quintero 11/27/2024 02:32:03 PM > Referral Priority Routine Reason Finding of elevated blood pressure, ref sent to PCP Diagnosis 1 Elevated blood-press ure reading, without diagnosis of hypertension (R03.0) Referral Organization [facility] Referring Provider First Name Referring Provider Last Name Alex Referring Provider Speciality Pain Medic ine Referred Provider Specialty General prac titioner Referral Priority Routine Reason (R) L4 and L5 SNRB Diagnosis 1 Radiculopathy, lumba r region (M54.16) [facility] Referred Provider Steven Johnson Referred Address [address],[place], [place],[address],[place] Referred Provider Specialty Pain Medicin e Procedure 1 LUMBAR SNRI (63362) Procedure 2 LUMBAR SNRI (76791) General Notes approved through leo core scanned in chart, Anna Quintero 12/17/2024 11:35:03 AM > Referral Priority Routine Reason Finding of elevated blood pressure, ref sent to PCP Diagnosis 1 Elevated blood-press ure reading, without diagnosis of hypertension (R03.0) Referral Organization [facility] Referring Provider First Name Referring Provider Last Name Alex Referring Provider Speciality Pain Medic ine Referred Provider Specialty Internal Med icine Referral Priority Routine Medications Medication SIG (Take, [...] W/U Status Risk Notes Problem Solitary sacroiliitis (122617415) Sacroiliitis, not elsewhere classified (M46.1) Active confirmed Problem Lumbosacral spondylosis without myelopathy (51368315) Spondylosis without myelopathy or radiculopathy, lumbar region (M47.816) Active confirmed Problem Degeneration of lumbar intervertebral disc (77288827) Other intervertebral disc degeneration, lumbar region (M51.36) Active confirmed Problem Lumbar radiculopathy (009457716) Radiculopathy, lumbar region (M54.16) Active confirmed Vital Signs Heart Rate 75 /min 12/21/2024 Temperature 97.6 degrees Fahrenheit 12/21/2024 Respiratory Rate 18 /min 12/21/2024 Blood pressure diastolic 89 mm Hg 12/21/2024 Height 71 in 12/21/2024 Blood pressure systolic 145 mm Hg 12/21/2024 Weight 208 lbs 12/21/2024 BMI 29.01 kg/m2 12/21/2024 Encounters Encounter Location Date Provider Diagnosis [facility] [address] [address] 04/29/2024 [place] Radiculopathy, lumba r region M54.16 and Other intervertebral disc degeneration, lumbar region M51.36 [facility] [address] [address] 05/05/2024 [place] Radiculopathy, lumba r region M54.16 and Other intervertebral disc degeneration, lumbar region M51.36 [facility] [address] [address] 06/26/2024 [place] Radiculopathy, lumba r region M54.16 and Other intervertebral disc degeneration, lumbar region M51.36 [facility] [address] [address] 06/30/2024 [place] Radiculopathy, lumba r region M54.16 and Other intervertebral disc degeneration, lumbar region M51.36 [facility] [address] [address] 07/24/2024 [place] Spondylosis without myelopathy or radiculopathy, lumbar region M47.816 [facility] [address] [address] 07/30/2024 [place] Spondylosis without myelopathy or radiculopathy, lumbar region M47.816 [facility] [address] [place] [address] 09/02/2024 [place] Spondylosis without myelopathy or radiculopathy, lumbar region M47.816 [facility] [address] [facility] [address] [place] [address] 09/24/2024 Steven Johnson Spondylosis without myelopathy or radiculopathy, lumbar region M47.816 [facility] [address] [place] [address] 11/27/2024 Steven Johnson Sacroiliitis, not elsewhere classified M46.1 [facility] [address] [facility] [address] [place] [address] 12/03/2024 Steven Johnson Sacroiliitis, not elsewhere classified M46.1 [facility] [address] [facility] [address] [place] [address] 12/17/2024 Steven Johnson Radiculopathy, lumba r region M54.16 [facility] [address] [facility] [address] [place] [address] 12/21/2024 Steven Johnson Radiculopathy, lumba r region M54.16 and Other intervertebral disc degeneration, lumbar region M51.36 [facility] [address] [facility] [address] [place] [address] 05/12/2024 Steven Johnson [facility] [address] [place] [address] [address] [place] [address] 10/19/2024 Steven Johnson [facility] [address] [place] [address] 04/29/2024 Steven Johnson [facility] [address] [place] [address] [place] [address] 06/26/2024 Steven Johnson [facility] [address] [facility] [address] [place] [address] 07/24/2024 Steven Johnson [facility] [address] [facility] [address] [place] [phone] 07/30/2024 Steven Johnson [facility] [address] [place] [address] 09/02/2024 Steven Johnson [facility] [address] [place] [address] 11/23/2024 Steven Johnson [facility] [address] [place] [address] 11/27/2024 Steven Johnson [facility] [address] [place] [address] 12/17/2024 Steven Johnson Assessments Encounter Date Diagnosis (ICD Code) Assessment Notes Treatment Notes Treatment Clinical Notes Section Notes 06/30/2024 Radiculopathy, lumbar region (ICD-10 - M54.16) [...] is carried out.Return to clinic as necessary 12/17/2024 Radiculopathy, lumbar region (ICD-10 - M54.16) 1. Schedule patient for a right L4 and L5 selective nerve root block.2. Return for above procedure after insurance authorization. 04/29/2024 Other intervertebral disc degeneration, lumbar region [...] as necessary. Consider translaminar approach for failure. 06/26/2024 Radiculopathy, lumbar region (ICD-10 - M54.16) 1. Schedule patient for L5-S1 translaminar lumbar epidural steroid injection.2. Return to clinic for above procedure after insurance authorization.3. Continue physical therapy. Patient has approximately 5 more weeks. 12/21/2024 Radiculopathy, lumbar region (ICD-10 - M54.16) 06/30/2024 Other intervertebral disc degeneration, lumbar region (ICD-10 - M51.36) 06/26/2024 Other intervertebral disc degeneration, lumbar region (ICD-10 - M51.36) 05/05/2024 Other intervertebral disc degeneration, lumbar region (ICD-10 - M51.36) 12/21/2024 Other intervertebral disc degeneration, lumbar region [...] 50 % of pain relief post procedure. 12/17/2024 Other The risk of thi s procedure were discussed with the patient in which they verbalized understanding and wished to proceed. The patient will continue to be part of a comprehensive pain management program. 12/21/2024 Other I will proceed today with [...] to clinic as necessary Plan Of Treatment Next Appt Details Provider Name:Steven Siegel Jimmie fishman, 03/08/2025 01:30:00 PM, [address] [place] [address], [facility] [address], [place], [address], Insurance Providers Payer Name Payer Address Payer Phone Subscriber Number Group Number Insured Name Patient Relationship to Insured Coverage Start Date Coverage End Date [employer] MED[employer]ARE [address] [place] [address] [id number] Jim Vivas ([place]) Self - patient is the insured Medical (General) History Medical History History ICD Code high blood pressure skin cancer prostate problems Surgical History Surgery Date(Month/Year) TURP 10/2023 Mole Lesion- right arm 10/2023 Melanoma 1988
--- OUTSIDE RECORDS SUMMARY | 2024-12-22 09:41 | XMS_ITS | Clinical Summary ---
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 Gender Identity Not on file Sexual Orientation Not on file Obstetrics History Last Filed Vital Signs Vital Sign Reading Time Taken Comments Blood Pressure 146/91 02/25/2018 12:36 PM BIOLOGY MANAGER Pulse 66 02/25/2018 12:36 PM BIOLOGY MANAGER Temperature - - Respiratory Rate - - Oxygen Saturation 98% 02/25/2018 12:36 PM BIOLOGY MANAGER Inhaled Oxygen Concentration - - Weight 95.3 [...] 07/04/2020, 06/02/2020 Influenza Vaccine (#1) 2024 Insurance [employer] [facility] AET[employer] MEDICARE [employer] [facility] MEDICARE [facility] Address: [address] [address] [place] [address] [place] [address] Care Teams Blue Line Trimmer Relationship Specialty Start Date End Date Burt Ken MD PCP - General Family Medicine 01/28/18
[2024-12-22 13:10] LABS: Hematocrit 46.5 % (42.0-52.0); Hemoglobin 15.3 g/dL (14.0-18.0); Immature Granulocyte Percent A 0.4 % (0-0.5); Lymphocytes Absolute Auto 1.40 K/mm3 (0.9-3.2); Mean Corpuscular HGB Conc 32.9 g/dl (32-36); Mean Corpuscular Hemoglobin 31.0 pg (26-34); Mean Corpuscular Volume 94.1 fl (80-100); Nucleated Red Blood Cells Absolute Auto 0.000 K/mm3 (0.0-0.012); Nucleated Red Blood Cells Perc 0.0 % (0.0-0.2); Platelet Count Result 246 k/mm3 (150-375); Red Blood Count 4.94 M/mm3 (4.6-6.20); White Blood Count 11.2 K/mm3 (4.5-10.0)
[2024-12-22 13:16] LABS: Iron 99 ug/dL (49-181)
[2024-12-22 13:25] LABS: Alanine Aminotransferase 25 U/L (6-50); Albumin Level 4.4 g/dL (3.5-5.1); Alkaline Phosphatase 92 U/L (38-126); Anion Gap 9 mmol/L (4-12); Aspartate Amino Transferase 38 U/L (17-59); Bilirubin,Total 0.8 mg/dL (0.2-1.3); Blood Urea Nitrogen 16 mg/dL (9-20); Calcium 9.3 mg/dL (8.4-10.2); Carbon Dioxide 26 mmol/L (22-30); Chloride 102 mmol/L (98-107); Cholesterol 216 mg/dL (0-200); Estimated Glomerular Filt Rate > 60; Glucose 108 mg/dL (65-110); HDL Direct 54 mg/dL; Potassium 3.9 mmol/L (3.4-5.0); Sodium 137 mmol/L (137-145); Total Protein 7.6 g/dL (6.3-8.2); Triglycerides 55 mg/dL (<150)
[2024-12-22 13:45] LABS: Percent Iron Saturation 28 % (20-50)
[2024-12-22 13:57] LABS: Ferritin 67.40 ng/mL (11.1-264)
== END 2024-12-22 09:00 | disposition home or self-care (01) ==
LOC: ANHGOSHLAB 09:00
PROVIDERS: PCP Family Medicine; Visit Provider Family Medicine
DX: E78.2 Mixed hyperlipidemia (principal); Z13.220 Encounter for screening for lipoid disorders; D64.9 Anemia, unspecified; K76.0 Fatty (change of) liver, not elsewhere classified; I10 Essential (primary) hypertension
CPT/HCPCS: 36415; 80048; 80061; 80076; 82728; 83540; 83550; 85025

== ENCOUNTER 2025-01-07 11:42 | Outpatient (CLI) | payer MEDICARE, SELFPAY ==
--- NOTE | ~2025-01-07 | XR_ITS ---
EXAMINATION: XR knee LT 3V, 01/07/2025 12:22 CDT HISTORY: Pain in left knee x 3 weeks, no inj, no surgery COMPARISON: No comparisons available. Findings: No acute fracture or malalignment. Moderate tricompartmental degenerative changes Soft tissues unremarkable. Impression: No acute fracture or malalignment. Reviewed, dictated and finalized at location P. Impression: No acute fracture or malalignment.
== END 2025-01-07 11:43 | disposition home or self-care (01) ==
LOC: GOSHIMG 11:43
PROVIDERS: PCP Family Medicine; Visit Provider Family Medicine
DX: M25.562 Pain in left knee (principal)
CPT/HCPCS: 73562